=== PATIENT | female | born 1990 | race Caucasian/White ===

== ENCOUNTER 2018-10-30 09:27 | Emergency (ER) | payer OTHER ==
[2018-10-30 09:37] VITALS: BP 138/96; PULSE 93; RESP 18; TEMP 98.1
--- NOTE | 2018-10-30 10:51 | ED ---
General Adult HPI - General Chief complaint: Skin/Abscess/Foreign Body Stated complaint: scratched arm-[facility] Time Seen by Provider: 10/30/18 09:38 Source: patient, RN notes reviewed Mode of arrival: ambulatory Limitations: no limitations - History of Present Illness Initial comments: 28 year old female presents to the emergency department for a chief complaint of human scratch. Patient states that yesterday she was sitting for a psych patient in this hospital. States that patient had saliva and feces on his hands. States he was trying to get up so she tried to restrain him and he scratched her right wrist. States she did provide local wound care and wash the area. States she is up-to-date on tetanus in the past 5 years. Patient is concerned because he had saliva on his hands any scratched her. Patient wishes to have testing done. Denies any redness or drainage from the area. Denies any bite alicia.Patient has no other complaints at this time including shortness of breath, chest pain, abdominal pain, nausea or vomiting, headache, or visual changes. - Related Data Allergies Allergy/AdvReac Type Severity Reaction Status Date / Time No Known Allergies Allergy Verified 10/30/18 09:32 Review of Systems ROS Statement: Those systems with pertinent positive or pertinent negative responses have been documented in the HPI. ROS Other: All systems not noted in ROS Statement are negative. Past Medical History Past Medical History: No Reported History History of Any Multi-Drug Resistant Organisms: None Reported Past Surgical History: Tonsillectomy Additional Past Surgical History / Comment(s): tumor removal, esophagus dilation Past Psychological History: No Psychological Hx Reported Smoking Status: Never smoker Past Alcohol Use History: Occasional Past Drug Use History: None Reported General Exam Limitations: no limitations General appearance: alert, in no apparent distress Head exam: Present: atraumatic, normocephalic, normal inspection Eye exam: Present: normal appearance, PERRL, EOMI. Absent: scleral icterus, conjunctival injection, periorbital swelling ENT exam: Present: normal exam, mucous membranes moist Neck exam: Present: normal inspection, full ROM. Absent: tenderness, meningismus, lymphadenopathy Respiratory exam: Present: normal lung sounds bilaterally. Absent: respiratory distress, wheezes, rales, rhonchi, stridor Cardiovascular Exam: Present: regular rate, normal rhythm, normal heart sounds. Absent: systolic murmur, diastolic murmur, rubs, gallop, clicks Extremities exam: Present: other (2 small shallow scratches measuring about 1 cm x 1 cm noted on the right volar wrist. No erythema or drainage from the site. No evidence of infection at this time.) Neurological exam: Present: alert, oriented X3, CN II-XII intact Psychiatric exam: Present: normal affect, normal mood Course Vital Signs 10/30/18 09:32 Temperature 98.1 F Pulse Rate 93 Respiratory 18 Rate Blood Pressure 138/96 O2 Sat by Pulse 98 Oximetry Medical Decision Making - Medical Decision Making 28-year-old female presents to the emergency department for chief, a few mid scratch occurred yesterday. Patient was patient sitting for another site patient when she was scratched in the right wrist and is concerned because he had saliva and feces on his hand. Patient did provide local wound care and at this time no evidence of infection. Tetanus is up-to-date. However patient is concerned for transmittal diseases, source blood will be tested as well as patient blood. She does not like to be prophylaxis. Patient will be notified about results by Soila Garcia. No need for antibiotics at this time. However did recommend watching for signs of infection as spreading or streaking redness and returning if these occur. Patient will return if she has any other worsening symptoms. Disposition Clinical Impression: Scratch of right forearm Disposition: HOME SELF-CARE Condition: Good Instructions (If sedation given, give patient instructions): Abrasion (ED) Additional Instructions: Please keep the area clean. Apply topical antibiotic ointment. If you notice any spreading redness streaking redness drainage or fevers return immediately to the emergency department. Return if you have any other worsening symptoms. Is patient prescribed a controlled substance at d/c from ED?: No Referrals: Leanne Almodovar MD [Primary Care Provider] - 1-2 days Time of Disposition: 11:02
== END 2018-10-30 11:13 | disposition home or self-care (01) ==
LOC: EC 09:27
DX: S50.811A Abrasion of right forearm, initial encounter (principal); W50.4XXA Accidental scratch by another person, initial encounter; Y92.69 Other specified industrial and construction area as the place of occurrence of the external cause; Y99.0 Civilian activity done for income or pay
CPT/HCPCS: 99283

== ENCOUNTER 2020-06-25 09:26 | Emergency (ER) | payer OTHER ==
[2020-06-25 09:31] VITALS: RESP 18
--- NOTE | 2020-06-25 09:34 | ED ---
Abdominal Pain HPI - General Source: patient Mode of arrival: ambulatory Limitations: no limitations <Quin Melara - Last Filed: 06/25/20 09:34> - General Source: patient, RN notes reviewed, old records reviewed <Catrachito Martinez - Last Filed: 06/25/20 11:14> - General Chief Complaint: Abdominal Pain Stated Complaint: abd pain/vomiting Time Seen by Provider: 06/25/20 09:30 - History of Present Illness Initial Comments: This is a 22-year-old female who presents emergency Department complaining of 2 day history of vomiting and epigastric abdominal pain starting yesterday. Patient states she continues to be nauseous and vomit. Patient denies any diarrhea. Patient denies any radiation of the pain to the back. Patient states there is some pain in the right upper quadrant as well. Patient denies any fever chills or cough. Patient states she is not safe factors she can't be . Patient denies any dysuria hematuria urinary frequency. (Catrachito Martinez) - Related Data Home Medications Medication Instructions Recorded Confirmed Cetirizine HCl [Zyrtec] 10 mg PO DAILY 06/25/20 06/25/20 Famotidine [Pepcid] 20 mg PO DAILY PRN 06/25/20 06/25/20 Methylphenidate HCl [Concerta] 27 mg PO DAILY 06/25/20 06/25/20 Multivitamins, Thera [Multivitamin 1 tab PO DAILY 06/25/20 06/25/20 (formulary)] Norgestimate-Ethinyl Estradiol 1 tab PO DAILY 06/25/20 06/25/20 [Tri-Sprintec Tablet] Omeprazole 20 mg PO DAILY PRN 06/25/20 06/25/20 Allergies Allergy/AdvReac Type Severity Reaction Status Date / Time No Known Allergies Allergy Verified 06/25/20 10:57 Review of Systems ROS Other: All systems not noted in ROS Statement are negative. <Quin Melara - Last Filed: 06/25/20 09:34> ROS Other: All systems not noted in ROS Statement are negative. <Catrachito Martinez - Last Filed: 06/25/20 11:14> ROS Statement: Those systems with pertinent positive or pertinent negative responses have been documented in the HPI. Past Medical History Past Medical History: No Reported History History of Any Multi-Drug Resistant Organisms: None Reported Past Surgical History: Tonsillectomy Additional Past Surgical History / Comment(s): tumor removal, esophagus dilation Past Psychological History: No Psychological Hx Reported Smoking Status: Never smoker Past Alcohol Use History: Occasional Past Drug Use History: None Reported <Quin Melara Martha - Last Filed: 06/25/20 09:34> General Exam Limitations: no limitations <Quin Melara - Last Filed: 06/25/20 09:34> <Catrachito Martinez - Last Filed: 06/25/20 11:14> - General Exam Comments Initial Comments: GENERAL: Patient is well-developed and well-nourished. Patient is nontoxic and well- hydrated and is in mild distress. ENT: Neck is soft and supple. No significant lymphadenopathy is noted. Oropharynx is clear. Moist mucous membranes. Neck has full range of motion without eliciting any pain. EYES: The sclera were anicteric and conjunctiva were pink and moist. Extraocular movements were intact and pupils were equal round and reactive to light. Eyelids were unremarkable. PULMONARY: Unlabored respirations. Good breath sounds bilaterally. No audible rales rhonchi or wheezing was noted. CARDIOVASCULAR: There is a regular rate and rhythm without any murmurs gallops or rubs. ABDOMEN: Epigastric and right upper quadrant mildly tender. SKIN: Skin is clear with no lesions or rashes and otherwise unremarkable. NEUROLOGIC: Patient is alert and oriented x3. Cranial nerves II through XII are grossly int act. Motor and sensory are also intact. Normal speech, volume and content. Symmetrical smile. MUSCULOSKELETAL: Normal extremities with adequate strength and full range of motion. No lower extremity swelling or edema. No calf tenderness. LYMPHATICS: No significant lymphadenopathy is noted PSYCHIATRIC: Normal psychiatric evaluation. (Catrachito Martinez) Course Vital Signs 06/25/20 06/25/20 09:28 10:52 Temperature 98.8 F 98.6 F Pulse Rate 111 H 98 Respiratory 18 18 Rate Blood Pressure 134/95 136/87 O2 Sat by Pulse 98 99 Oximetry Medical Decision Making - Lab Data Result diagrams: 06/25/20 09:49 06/25/20 09:49 <Catrachito Martinez - Last Filed: 06/25/20 11:14> - Medical Decision Making Gallbladder ultrasound showed no acute abnormality. I will back into the room and the patient was much because she had no abdominal pain. Patient states she is mildly nauseous but no longer having any vomiting. (Catrachito Martinez) - Lab Data Lab Results 06/25/20 06/25/20 06/25/20 Range/Units 09:49 09:49 09:49 WBC 13.7 H (3.8-10.6) k/uL RBC 4.64 (3.80-5.40) m/uL Hgb 14.1 (11.4-16.0) gm/dL Hct 42.3 (34.0-46.0) % MCV 91.1 (80.0-100.0) fL MCH 30.4 (25.0-35.0) pg MCHC 33.4 (31.0-37.0) g/dL RDW 12.7 (11.5-15.5) % Plt Count 317 (150-450) k/uL MPV 7.1 Neutrophils % 78 % Lymphocytes % 12 % Monocytes % 6 % Eosinophils % 0 % Basophils % 0 % Neutrophils # 10.7 H (1.3-7.7) k/uL Lymphocytes # 1.7 (1.0-4.8) k/uL Monocytes # 0.8 (0-1.0) k/uL Eosinophils # 0.0 (0-0.7) k/uL Basophils # 0.0 (0-0.2) k/uL Sodium 137 (137-145) mmol/L Potassium 4.0 (3.5-5.1) mmol/L Chloride 101 (98-107) mmol/L Carbon Dioxide 24 (22-30) mmol/L Anion Gap 12 mmol/L BUN 9 (7-17) mg/dL Creatinine 0.77 (0.52-1.04) mg/dL Est GFR (CKD-EPI)AfAm >90 (>60 ml/min/1.73 sqM) Est GFR (CKD-EPI)NonAf >90 (>60 ml/min/1.73 sqM) Glucose 114 H (74-99) mg/dL Calcium 9.9 (8.4-10.2) mg/dL Total Bilirubin 1.1 (0.2-1.3) mg/dL AST 27 (14-36) U/L ALT 19 (4-34) U/L Alkaline Phosphatase 98 (38-126) U/L Total Protein 8.7 H (6.3-8.2) g/dL Albumin 4.9 (3.5-5.0) g/dL Amylase 69 (30-110) U/L Lipase 101 (23-300) U/L Urine Color Light Yellow Urine Appearance Clear (Clear) Urine pH 6.0 (5.0-8.0) Ur Specific [place] 1.008 (1.001-1.035) Urine Protein Negative (Negative) Urine Glucose (UA) Negative (Negative) Urine Ketones Negative (Negative) Urine Blood Trace H (Negative) Urine Nitrite Negative (Negative) Urine Bilirubin Negative (Negative) Urine Urobilinogen <2.0 (<2.0) mg/dL Ur Leukocyte Esterase Negative (Negative) Urine RBC 1 (0-5) /hpf Urine WBC 2 (0-5) /hpf Ur Squamous Epith Cells 1 (0-4) /hpf Urine Bacteria Occasional H (None) /hpf Urine Mucus Rare H (None) /hpf Urine HCG, Qual (Not Detectd) 06/25/20 Range/Units 09:49 WBC (3.8-10.6) k/uL RBC (3.80-5.40) m/uL Hgb (11.4-16.0) gm/dL Hct (34.0-46.0) % MCV (80.0-100.0) fL MCH (25.0-35.0) pg MCHC (31.0-37.0) g/dL RDW (11.5-15.5) % Plt Count (150-450) k/uL MPV Neutrophils % % Lymphocytes % % Monocytes % % Eosinophils % % Basophils % % Neutrophils # (1.3-7.7) k/uL Lymphocytes # (1.0-4.8) k/uL Monocytes # (0-1.0) k/uL Eosinophils # (0-0.7) k/uL Basophils # (0-0.2) k/uL Sodium (137-145) mmol/L Potassium (3.5-5.1) mmol/L Chloride (98-107) mmol/L Carbon Dioxide (22-30) mmol/L Anion Gap mmol/L BUN (7-17) mg/dL Creatinine (0.52-1.04) mg/dL Est GFR (CKD-EPI)AfAm (>60 ml/min/1.73 sqM) Est GFR (CKD-EPI)NonAf (>60 ml/min/1.73 sqM) Glucose (74-99) mg/dL Calcium (8.4-10.2) mg/dL Total Bilirubin (0.2-1.3) mg/dL AST (14-36) U/L ALT (4-34) U/L Alkaline Phosphatase (38-126) U/L Total Protein (6.3-8.2) g/dL Albumin (3.5-5.0) g/dL Amylase (30-110) U/L Lipase (23-300) U/L Urine Color Urine Appearance (Clear) Urine pH (5.0-8.0) Ur Specific [place] (1.001-1.035) Urine Protein (Negative) Urine Glucose (UA) (Negative) Urine Ketones (Negative) Urine Blood (Negative) Urine Nitrite (Negative) Urine Bilirubin (Negative) Urine Urobilinogen (<2.0) mg/dL Ur Leukocyte Esterase (Negative) Urine RBC (0-5) /hpf Urine WBC (0-5) /hpf Ur Squamous Epith Cells (0-4) /hpf Urine Bacteria (None) /hpf Urine Mucus (None) /hpf Urine HCG, Qual Not Detected (Not Detectd) Disposition <Quin Melara - Last Filed: 06/25/20 09:34> Is patient prescribed a controlled substance at d/c from ED?: No Time of Disposition: 11:14 <Catrachito Martinez - Last Filed: 06/25/20 11:14> Clinical Impression: Acute vomiting Disposition: HOME SELF-CARE Condition: Good Instructions (If sedation given, give patient instructions): Acute Nausea and Vomiting (ED) Additional Instructions: Patient should take Zofran as prescribed Referrals: Leanne Almodovar MD [Primary Care Provider] - 1-2 days
[2020-06-25] MEDS ORDERED: HYDROmorphone 0.5 MG/0.5 ML SYRINGE IVP STA (09:43)
[2020-06-25] MEDS ORDERED: ONDANSETRON 4 MG/2 ML VIAL IVP STA (09:43)
[2020-06-25] MEDS ORDERED: SODIUM CHLORIDE 0.9% 1,000 ML IV STA (09:43)
[2020-06-25 09:57] LABS: Basophils % (A) 0 %; Eosinophils % (A) 0 %; HCT 42.3 % (34.0-46.0); HGB 14.1 gm/dL (11.4-16.0); Lymphocytes # (A) 1.7 k/uL (1.0-4.8); Lymphocytes % (A) 12 %; MCH 30.4 pg (25.0-35.0); MCHC 33.4 g/dL (31.0-37.0); MCV 91.1 fL (80.0-100.0); Mean Platelet Volume 7.1; Monocytes # (A) 0.8 k/uL (0-1.0); Monocytes % (A) 6 %; Neutrophils # (A) 10.7 k/uL (1.3-7.7); Neutrophils % (A) 78 %; Platelet Count 317 k/uL (150-450); RBC 4.64 m/uL (3.80-5.40); RDW 12.7 % (11.5-15.5); WBC 13.7 k/uL (3.8-10.6)
[2020-06-25 10:07] LABS: ALT 19 U/L (4-34); AST 27 U/L (14-36); African American GFR (CKD) >90 (>60 ml/min/1.73 sqM); Albumin 4.9 g/dL (3.5-5.0); Alkaline Phosphatase 98 U/L (38-126); Amylase 69 U/L (30-110); Anion Gap 12 mmol/L; Blood Urea Nitrogen 9 mg/dL (7-17); Calcium 9.9 mg/dL (8.4-10.2); Carbon Dioxide 24 mmol/L (22-30); Chloride 101 mmol/L (98-107); Glucose 114 mg/dL (74-99); Lipase 101 U/L (23-300); Non-African American GFR(CKD) >90 (>60 ml/min/1.73 sqM); Sodium 137 mmol/L (137-145); Total Bilirubin 1.1 mg/dL (0.2-1.3); Total Protein 8.7 g/dL (6.3-8.2)
[2020-06-25 10:09] LABS: Appearance,Urine Clear (Clear); Bacteria,Urine Occasional /hpf; Bilirubin,Urine Negative (Negative); Blood,Urine Trace (Negative); Color,Urine Light Yellow; Glucose,Urine (UA) Negative (Negative); Ketones,Urine Negative (Negative); Leukocyte Esterase,Urine Negative (Negative); Mucus,Urine Rare /hpf; Nitrite,Urine Negative (Negative); Protein,Urine Negative (Negative); RBC,Urine 1 /hpf (0-5); Specific Gravity,Urine 1.008 (1.001-1.035); Squamous Epithelial Cell,Urine 1 /hpf (0-4); Urobilinogen,Urine <2.0 mg/dL (<2.0); WBC,Urine 2 /hpf (0-5)
--- NOTE | 2020-06-25 10:34 | US ---
EXAMINATION TYPE: US gallbladder DATE OF EXAM: 06/25/2020 COMPARISON: NONE CLINICAL HISTORY: Abdominal pain. Pain nausea and vomiting. EXAM MEASUREMENTS: Liver Length: 13.7 cm Gallbladder Wall: .2 cm CBD: .5 cm Right Kidney: 11.4 x 4.1 x 3.8 cm Pancreas: Tail obscured by overlying bowel gas Liver: wnl Gallbladder: No stones seen Evidence for sonographic Foster's sign: No CBD: wnl Right Kidney: No hydronephrosis or masses seen IMPRESSION: No distinct abnormality seen.
[2020-06-25 10:54] VITALS: BP 136/87; PULSE 98; TEMP 98.6
[2020-06-25] MEDS ORDERED: ONDANSETRON 4 MG ODT STARTER PACK 2 TAB BTL PO STA (11:14)
== END 2020-06-25 12:03 | disposition home or self-care (01) ==
LOC: EC 09:26
DX: R11.2 Nausea with vomiting, unspecified (principal); Z79.899 Other long term (current) drug therapy; Z79.3 Long term (current) use of hormonal contraceptives
CPT/HCPCS: 36415; 80053; 82150; 83690; 85025; 81001; 81025; 76705; 99284; 96374; 96375; 96361 ×2; J2405; S0119; J1170

== ENCOUNTER 2020-06-26 11:45 | Inpatient (IN) | payer OTHER ==
[2020-06-26] MEDS ORDERED: KETOROLAC 15 MG/ML 1 ML VIAL IVP STA (11:51)
[2020-06-26] MEDS ORDERED: SODIUM CHLORIDE 0.9% 1,000 ML IV STA (11:51)
[2020-06-26] MEDS ORDERED: diphenhydrAMINE 50 MG/ML 1 ML VIAL IVP STA (11:51)
[2020-06-26] MEDS ORDERED: ONDANSETRON 4 MG/2 ML VIAL IVP STA ×2 (11:51→15:38)
[2020-06-26] MEDS ORDERED: FAMOTIDINE 20 MG/2 ML VIAL IV STA (12:06)
[2020-06-26] MEDS ORDERED: HYDROmorphone 0.5 MG/0.5 ML SYRINGE IVP STA ×3 (12:06→15:38)
[2020-06-26] MEDS ORDERED: PANTOPRAZOLE 40 MG/10 ML VIAL IVP STA (12:06)
--- NOTE | 2020-06-26 12:24 | ED ---
Abdominal Pain HPI <Matt Driver - Last Filed: 06/26/20 15:26> - General Source: patient, RN notes reviewed Mode of arrival: wheelchair Limitations: no limitations <Hipolito Vee - Last Filed: 06/26/20 15:31> - General Chief Complaint: Abdominal Pain Stated Complaint: revisit/nausea/vomiting Time Seen by Provider: 06/26/20 11:51 - History of Present Illness Initial Comments: This is a 22-year-old female presents emergency Department with chief complaint of abdominal pain, nausea vomiting. Patient states she started vomiting 4 days ago seen here yesterday in emergency department and also on lab work with no acute findings. 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 Patient states that she has not had one in the last 4 years. She has no dysuria no hematuria no diarrhea states that she's felt more constipated. states she has pain areas across her upper abdomen no chest pain or shortness breath. Denies fevers or chills denies chance . (Hipolito Vee) - Related Data Home Medications Medication Instructions Recorded Confirmed Cetirizine HCl [Zyrtec] 10 mg PO DAILY 06/25/20 06/26/20 Famotidine [Pepcid] 20 mg PO DAILY PRN 06/25/20 06/26/20 Methylphenidate HCl [Concerta] 27 mg PO DAILY 06/25/20 06/26/20 Multivitamins, Thera [Multivitamin 1 tab PO DAILY 06/25/20 06/26/20 (formulary)] Norgestimate-Ethinyl Estradiol 1 tab PO DAILY 06/25/20 06/26/20 [Tri-Sprintec Tablet] Ascorbic Acid [Vitamin C] 500 mg PO DAILY 06/26/20 06/26/20 Allergies Allergy/AdvReac Type Severity Reaction Status Date / Time No Known Allergies Allergy Verified 06/26/20 12:36 Review of Systems ROS Other: All systems not noted in ROS Statement are negative. <Matt Driver - Last Filed: 06/26/20 15:26> ROS Other: All systems not noted in ROS Statement are negative. <Hipolito Vee - Last Filed: 06/26/20 15:31> ROS Statement: Those systems with pertinent positive or pertinent negative responses have been documented in the HPI. Past Medical History Past Medical History: No Reported History History of Any Multi-Drug Resistant Organisms: None Reported Past Surgical History: Tonsillectomy Additional Past Surgical History / Comment(s): tumor removal, esophagus dilation Past Psychological History: No Psychological Hx Reported Smoking Status: Never smoker Past Alcohol Use History: Occasional Past Drug Use History: None Reported <Hipolito Vee - Last Filed: 06/26/20 15:31> General Exam Limitations: no limitations General appearance: alert, in no apparent distress Head exam: Present: atraumatic, normocephalic, normal inspection Eye exam: Present: normal appearance, PERRL, EOMI. Absent: scleral icterus, conjunctival injection, periorbital swelling ENT exam: Present: normal exam, mucous membranes moist Neck exam: Present: normal inspection, full ROM. Absent: tenderness, meningismus, lymphadenopathy Respiratory exam: Present: normal lung sounds bilaterally. Absent: respiratory distress, wheezes, rales, rhonchi, stridor Cardiovascular Exam: Present: normal rhythm, tachycardia, normal heart sounds. Absent: systolic murmur, diastolic murmur, rubs, gallop, clicks GI/Abdominal exam: Present: soft, normal bowel sounds. Absent: distended, tenderness, guarding, rebound, rigid Back exam: Absent: CVA tenderness (R), CVA tenderness (L) Neurological exam: Present: alert, oriented X3 Skin exam: Present: warm, dry, intact, normal color. Absent: rash <Hipolito Vee - Last Filed: 06/26/20 15:31> Course Vital Signs 06/26/20 06/26/20 11:46 13:44 Temperature 98.4 F Pulse Rate 114 H 105 H Respiratory 18 16 Rate Blood Pressure 135/94 115/78 O2 Sat by Pulse 98 99 Oximetry Medical Decision Making - Lab Data Result diagrams: 06/26/20 12:30 06/26/20 12:30 <Matt Driver - Last Filed: 06/26/20 15:26> - Lab Data Result diagrams: 06/26/20 12:30 06/26/20 12:30 <Hipolito Vee - Last Filed: 06/26/20 15:31> - Medical Decision Making Patient reevaluated and reexamined by myself, Dr. Driver. Patient resting comfortably in bed. Mild to moderate tenderness in the epigastrium. Patient states she has been having nausea and vomiting. CT report reviewed. Patient updated. Case discussed with Dr. Dalton, covering for hospital call, who will admit. He agrees with high-dose heparin and vascular consult. Patient denies smoking. Patient does take control and this will be held pending further evaluation. (Matt Driver) - Lab Data Lab Results 06/26/20 06/26/20 06/26/20 Range/Units 12:30 12:30 12:30 WBC 14.7 H (3.8-10.6) k/uL RBC 4.40 (3.80-5.40) m/uL Hgb 13.6 (11.4-16.0) gm/dL Hct 40.1 (34.0-46.0) % MCV 91.1 (80.0-100.0) fL MCH 31.0 (25.0-35.0) pg MCHC 34.1 (31.0-37.0) g/dL RDW 12.6 (11.5-15.5) % Plt Count 301 (150-450) k/uL MPV 7.2 Neutrophils % 79 % Lymphocytes % 10 % Monocytes % 6 % Eosinophils % 0 % Basophils % 0 % Neutrophils # 11.6 H (1.3-7.7) k/uL Lymphocytes # 1.5 (1.0-4.8) k/uL Monocytes # 0.9 (0-1.0) k/uL Eosinophils # 0.0 (0-0.7) k/uL Basophils # 0.1 (0-0.2) k/uL Sodium 135 L (137-145) mmol/L Potassium 3.8 (3.5-5.1) mmol/L Chloride 101 (98-107) mmol/L Carbon Dioxide 21 L (22-30) mmol/L Anion Gap 13 mmol/L BUN 9 (7-17) mg/dL Creatinine 0.70 (0.52-1.04) mg/dL Est GFR (CKD-EPI)AfAm >90 (>60 ml/min/1.73 sqM) Est GFR (CKD-EPI)NonAf >90 (>60 ml/min/1.73 sqM) Glucose 107 H (74-99) mg/dL Plasma Lactic Acid Rogelio 1.1 (0.7-2.0) mmol/L Calcium 9.6 (8.4-10.2) mg/dL Total Bilirubin 1.4 H (0.2-1.3) mg/dL AST 24 (14-36) U/L ALT 15 (4-34) U/L Alkaline Phosphatase 86 (38-126) U/L Total Protein 7.9 (6.3-8.2) g/dL Albumin 4.5 (3.5-5.0) g/dL Amylase 64 (30-110) U/L Lipase 80 (23-300) U/L Urine Color Urine Appearance (Clear) Urine pH (5.0-8.0) Ur Specific [place] (1.001-1.035) Urine Protein (Negative) Urine Glucose (UA) (Negative) Urine Ketones (Negative) Urine Blood (Negative) Urine Nitrite (Negative) Urine Bilirubin (Negative) Urine Urobilinogen (<2.0) mg/dL Ur Leukocyte Esterase (Negative) Urine RBC (0-5) /hpf Urine WBC (0-5) /hpf Ur Squamous Epith Cells (0-4) /hpf Urine Bacteria (None) /hpf Urine Mucus (None) /hpf Urine HCG, Qual (Not Detectd) 06/26/20 06/26/20 Range/Units 13:06 13:06 WBC (3.8-10.6) k/uL RBC (3.80-5.40) m/uL Hgb (11.4-16.0) gm/dL Hct (34.0-46.0) % MCV (80.0-100.0) fL MCH (25.0-35.0) pg MCHC (31.0-37.0) g/dL RDW (11.5-15.5) % Plt Count (150-450) k/uL MPV Neutrophils % % Lymphocytes % % Monocytes % % Eosinophils % % Basophils % % Neutrophils # (1.3-7.7) k/uL Lymphocytes # (1.0-4.8) k/uL Monocytes # (0-1.0) k/uL Eosinophils # (0-0.7) k/uL Basophils # (0-0.2) k/uL Sodium (137-145) mmol/L Potassium (3.5-5.1) mmol/L Chloride (98-107) mmol/L Carbon Dioxide (22-30) mmol/L Anion Gap mmol/L BUN (7-17) mg/dL Creatinine (0.52-1.04) mg/dL Est GFR (CKD-EPI)AfAm (>60 ml/min/1.73 sqM) Est GFR (CKD-EPI)NonAf (>60 ml/min/1.73 sqM) Glucose (74-99) mg/dL Plasma Lactic Acid Rogelio (0.7-2.0) mmol/L Calcium (8.4-10.2) mg/dL Total Bilirubin (0.2-1.3) mg/dL AST (14-36) U/L ALT (4-34) U/L Alkaline Phosphatase (38-126) U/L Total Protein (6.3-8.2) g/dL Albumin (3.5-5.0) g/dL Amylase (30-110) U/L Lipase (23-300) U/L Urine Color Light Yellow Urine Appearance Clear (Clear) Urine pH 6.0 (5.0-8.0) Ur Specific [place] 1.007 (1.001-1.035) Urine Protein Negative (Negative) Urine Glucose (UA) Negative (Negative) Urine Ketones 1+ H (Negative) Urine Blood Small H (Negative) Urine Nitrite Negative (Negative) Urine Bilirubin Negative (Negative) Urine Urobilinogen <2.0 (<2.0) mg/dL Ur Leukocyte Esterase Negative (Negative) Urine RBC 1 (0-5) /hpf Urine WBC <1 (0-5) /hpf Ur Squamous Epith Cells <1 (0-4) /hpf Urine Bacteria Occasional H (None) /hpf Urine Mucus Rare H (None) /hpf Urine HCG, Qual Not Detected (Not Detectd) Disposition <Matt Driver - Last Filed: 06/26/20 15:26> <Hipolito Vee - Last Filed: 06/26/20 15:31> Clinical Impression: Portal vein thrombosis, Abdominal pain, Vomiting Disposition: ADMITTED IP TO THIS [facility] Condition: Serious Referrals: Leanne Almodovar MD [Primary Care Provider] - 1-2 days
[2020-06-26 12:49] LABS: Basophils # (A) 0.1 k/uL (0-0.2); Basophils % (A) 0 %; Eosinophils % (A) 0 %; HCT 40.1 % (34.0-46.0); HGB 13.6 gm/dL (11.4-16.0); Lymphocytes # (A) 1.5 k/uL (1.0-4.8); Lymphocytes % (A) 10 %; MCHC 34.1 g/dL (31.0-37.0); MCV 91.1 fL (80.0-100.0); Mean Platelet Volume 7.2; Monocytes # (A) 0.9 k/uL (0-1.0); Monocytes % (A) 6 %; Neutrophils # (A) 11.6 k/uL (1.3-7.7); Neutrophils % (A) 79 %; Platelet Count 301 k/uL (150-450); RDW 12.6 % (11.5-15.5); WBC 14.7 k/uL (3.8-10.6)
[2020-06-26 13:02] LABS: ALT 15 U/L (4-34); AST 24 U/L (14-36); African American GFR (CKD) >90 (>60 ml/min/1.73 sqM); Albumin 4.5 g/dL (3.5-5.0); Alkaline Phosphatase 86 U/L (38-126); Amylase 64 U/L (30-110); Anion Gap 13 mmol/L; Blood Urea Nitrogen 9 mg/dL (7-17); Calcium 9.6 mg/dL (8.4-10.2); Carbon Dioxide 21 mmol/L (22-30); Chloride 101 mmol/L (98-107); Glucose 107 mg/dL (74-99); Lipase 80 U/L (23-300); Non-African American GFR(CKD) >90 (>60 ml/min/1.73 sqM); Potassium 3.8 mmol/L (3.5-5.1); Sodium 135 mmol/L (137-145); Total Bilirubin 1.4 mg/dL (0.2-1.3); Total Protein 7.9 g/dL (6.3-8.2)
[2020-06-26 14:03] LABS: Appearance,Urine Clear (Clear); Bacteria,Urine Occasional /hpf; Bilirubin,Urine Negative (Negative); Blood,Urine Small (Negative); Color,Urine Light Yellow; Glucose,Urine (UA) Negative (Negative); Ketones,Urine 1+ (Negative); Leukocyte Esterase,Urine Negative (Negative); Mucus,Urine Rare /hpf; Nitrite,Urine Negative (Negative); Protein,Urine Negative (Negative); RBC,Urine 1 /hpf (0-5); Specific Gravity,Urine 1.007 (1.001-1.035); Squamous Epithelial Cell,Urine <1 /hpf (0-4); Urobilinogen,Urine <2.0 mg/dL (<2.0); WBC,Urine <1 /hpf (0-5)
--- NOTE | 2020-06-26 14:55 | CT ---
EXAMINATION TYPE: CT abdomen pelvis w con DATE OF EXAM: 06/26/2020 COMPARISON: Ultrasound gallbladder 06/25/2020 HISTORY: Generalized abdominal pain. CT DLP: 1137.3 mGycm Automated exposure control for dose reduction was used. TECHNIQUE: Helical acquisition of images from the lung bases through the pelvis have been completed. CONTRAST: Performed without Oral Contrast and with IV Contrast, patient injected with 100 mL of Isovue 300. FINDINGS: There is abnormal low attenuation within the central portion of the superior mesenteric vei n, involving the splenoportal confluence, portal vein, there is inflammatory change surrounding the d uodenum at the third and fourth portion, pancreatic head. LUNG BASES: No significant abnormality is appreciated. AORTA: No significant abnormality is appreciated. LIVER/GB: There is low attenuation within the central portion of the liver which may be related to th e portal vein thrombus which extends into the left and right lobes. Portal adenopathy noted axial samanta ge #24. Gallbladder shows no stones or wall thickening, layering density may represent tumefactive sl udge PANCREAS: Some peripancreatic inflammatory changes suspected with increased density within the surrou nding fat SPLEEN: No significant abnormality is seen. ADRENALS: No significant abnormality is seen. KIDNEYS: Nonobstructive punctate calculus is present at the upper pole the left kidney, axial image # 24, coronal image 64. REPRODUCTIVE ORGANS: Right ovarian cystic lesion is present measuring 3.3 cm. BOWEL: Some mild inflammatory change suspected along the right paracolic gutter. FREE AIR: No Free Air visible. ASCITES: There is some free fluid in the pelvis.. PELVIC ADENOPATHY: None visualized. RETROPERITONEAL ADENOPATHY: No Retroperitoneal Adenopathy visible. URINARY BLADDER: Thickened wall is present however the urinary bladder is not distended OSSEOUS STRUCTURES: No significant abnormality is seen. IMPRESSION: THERE IS PORTAL VEIN THROMBOSIS SUSPECTED WITH EXTENSION INTO THE SUPERIOR MESENTERIC VEIN, SPLENOPOR TRISTON CONFLUENCE AND RESULTING INFLAMMATORY CHANGES.
[2020-06-26] MEDS ORDERED: NALOXONE 0.4 MG/ML 1 ML VIAL IV PRN (15:32)
[2020-06-26] MEDS ORDERED: HEPARIN SODIUM,PORCINE 10,000 UNIT/ML 1 ML VIAL IV ONE (15:38)
[2020-06-26] MEDS ORDERED: HEPARIN SODIUM,PORCINE 5,000 UNIT/ML 1 ML VIAL IV PRN (15:38)
[2020-06-26] MEDS ORDERED: MELATONIN 3 MG TABLET PO PRN (16:14)
[2020-06-26] MEDS ORDERED: PROCHLORPERAZINE 5 MG TAB PO PRN (16:14)
[2020-06-26] MEDS: SODIUM CHLORIDE 0.9% 1,000 ML IV SCH (16:24)
[2020-06-26] MEDS ORDERED: FAMOTIDINE 20 MG TAB PO PRN (16:36)
[2020-06-26] MEDS: HEPARIN SOD,PORK IN 0.45% NACL 25,000 UNIT in 0.45% NACL 1 250ML.BAG IV SCH (16:38)
--- NOTE | 2020-06-26 16:42 | P.HPIM ---
History of Present Illness H&P Date: 06/26/20 Chief Complaint: Abdominal pain, nausea, and vomiting History of presenting illness: Patient is a 30-year-old female with a past medical history of ADHD, GERD, and esophageal narrowing resulting in surgical procedure for dilation. Patient presenting to [facility] with a chief complaint of abdominal pain accompanied by nausea and vomiting. Patient reports his pain began 4 days ago and is described as a constant, persistent stabbing sensation to her epigastric region with a burning sensation radiating throughout her right upper quadrant. Patient was seen and evaluated in our emergency department yesterday and received a full workup with CBC, CMP, and lipase all with unremarkable findi ngs. Ultrasound gallbladder was negative revealing no distinct abnormalities. Patient was then discharged home. She returned today after reports that she continues to have this persistent abdominal pain accompanied by nausea and greater than 20 episodes of vomiting in the past 24 hours. She currently rates pain 8 out of 10 accompanied by persistent nausea. Patient currently denying any other complaints including fevers, chills, headache, lightheadedness, dizziness, chest pain or palpitations, shortness of breath or dyspnea with exertion, or experiencing any swelling/numbness/tingling in extremities. Patient was again worked up in the emergency department today with CBC now revealing mild leukocytosis with WBC count of 14.7 and CMP revealing an elevated total bili of 1.4 (was 1.1 yesterday). A CT abdomen and pelvis with contrast was then performed revealing portal pain thrombosis suspected with extension into the superior mesenteric vein, splenoportal confluence and resulting inf lammatory changes. Patient diagnosed with portal venous thrombosis and admitted under our services accompanied by consult to vascular surgery for continued medical management. Review of systems: Pertinent positives and negatives as discussed in HPI, a complete review of systems was performed and all other systems are negative. Physical exam: General: non toxic, mild distress because patient appeared very tearful with reports of pain or discomfort, appears at stated age Derm: warm, dry Head: atraumatic, normocephalic, symmetric Eyes: EOMI, no lid lag, anicteric sclera Mouth: no lip lesion, mucus membranes moist Cardiovascular: S1S2 normal with regular rate and rhythm. No murmur, rub, or gallop noted. Positive posterior tibial pulses bilaterally. Cap refill less than 2 seconds. Lungs: Respirations even, regular, and unlabored on room air. Lungs clear to auscultation bilaterally. No adventitious lung sounds noted including rhonchi, rales, crackles, or wheezes. No accessory muscle use. Abdominal: Soft with bowel sounds 4 quadrants. Tenderness to epigastric region, right upper quadrant, and suprapubic region. No appreciable organomegaly. Ext: No gross muscle atrophy, no edema, no contractures. Range of motion intact. Neuro: GCS 15. CN II-XII grossly intact, no focal neuro deficits. Psych: Alert, oriented, appropriate affect Assessment and Plan of Care: Portal vein thrombosis -CT abdomen and pelvis with contrast: portal pain thrombosis suspected w/ extension into the superior mesenteric vein, splenoportal confluence & resulting inflammatory changes. -Initiation of anticoagulation with heparin. -Consult to vascular surgery, Dr. Fung. Appreciate further recommendations. -Symptomatic care with Zofran as needed for nausea, Compazine for persistent nausea uncontrolled with Zofran. -Pain management with Dilaudid 1 mg every 3 hours as needed for severe pain. -Doppler ultrasound of liver for confirmation of CT findings. GERD -Continue home medication regimen with Pepcid. ADHD -Continue home medication regimen with Concerta. CODE STATUS: Full code DVT prophylaxis: Heparin Discussed with: Patient Anticipated discharge date: Clinical course to determine Anticipated discharge place: Home A total of 45 minutes was spent on the care of this complex patient more than 50% of the time was spent in counseling and care coordination. Past Medical History Past Medical History: No Reported History History of Any Multi-Drug Resistant Organisms: None Reported Past Surgical History: Tonsillectomy Additional Past Surgical History / Comment(s): tumor removal, esophagus dilation Past Psychological History: No Psychological Hx Reported Smoking Status: Never smoker Past Alcohol Use History: Occasional Past Drug Use History: None Reported Medications and Allergies Home Medications Medication Instructions Recorded Confirmed Type Cetirizine HCl [Zyrtec] 10 mg PO DAILY 06/25/20 06/26/20 History Famotidine [Pepcid] 20 mg PO DAILY PRN 06/25/20 06/26/20 History Methylphenidate HCl [Concerta] 27 mg PO DAILY 06/25/20 06/26/20 History Multivitamins, Thera [Multivitamin 1 tab PO DAILY 06/25/20 06/26/20 History (formulary)] Norgestimate-Ethinyl Estradiol 1 tab PO DAILY 06/25/20 06/26/20 History [Tri-Sprintec Tablet] Ascorbic Acid [Vitamin C] 500 mg PO DAILY 06/26/20 06/26/20 History Allergies Allergy/AdvReac Type Severity Reaction Status Date / Time No Known Allergies Allergy Verified 06/26/20 12:36 Physical Exam Vitals: Vital Signs Temp Pulse Resp BP Pulse Ox 06/26/20 13:44 105 H 16 115/78 99 06/26/20 11:46 98.4 F 114 H 18 135/94 98 Intake and Output 06/26/20 06/26/20 06/26/20 06:59 14:59 22:59 Other: Weight 87.09 kg Results CBC & Chem 7: 06/26/20 12:30 06/26/20 12:30 Labs: Abnormal Lab Results - Last 24 Hours (Table) 06/26/20 06/26/20 06/26/20 Range/Units 12:30 12:30 13:06 WBC 14.7 H (3.8-10.6) k/uL Neutrophils # 11.6 H (1.3-7.7) k/uL Sodium 135 L (137-145) mmol/L Carbon Dioxide 21 L (22-30) mmol/L Glucose 107 H (74-99) mg/dL Total Bilirubin 1.4 H (0.2-1.3) mg/dL Urine Ketones 1+ H (Negative) Urine Blood Small H (Negative) Urine Bacteria Occasional H (None) /hpf Urine Mucus Rare H (None) /hpf
[2020-06-26] MEDS: HYDROmorphone 0.5 MG/0.5 ML SYRINGE IVP PRN (17:36)
[2020-06-26] MEDS: HYDROmorphone 1 MG/ML 1 ML SYRINGE IVP PRN ×2 (19:52→22:36)
[2020-06-26] MEDS: PROCHLORPERAZINE INJ 10 MG/2 ML VIAL IVP PRN (22:29)
[2020-06-27] MEDS: HYDROmorphone 1 MG/ML 1 ML SYRINGE IVP PRN ×7 (01:37→21:09)
[2020-06-27 03:00] LABS: Partial Thromboplastin Time 23.4 sec (22.0-30.0); Prothrombin Time 10.6 sec (9.0-12.0)
[2020-06-27] MEDS: SODIUM CHLORIDE 0.9% 1,000 ML IV SCH ×3 (03:41→23:15)
[2020-06-27] MEDS: PROCHLORPERAZINE INJ 10 MG/2 ML VIAL IVP PRN ×2 (08:02→18:19)
[2020-06-27] MEDS: PANTOPRAZOLE 40 MG/10 ML VIAL IVP SCH ×2 (08:10→22:10)
[2020-06-27] MEDS: METHYLPHENIDATE HCL 27 MG PO SCH (08:14)
--- NOTE | 2020-06-27 08:54 | US ---
EXAMINATION TYPE: US liver doppler DATE OF EXAM: 06/26/2020 COMPARISON: NONE CLINICAL HISTO RY: CT revealing suspected portal venous thrombosis. Abnormal CT EXAM MEASUREMENTS: Liver Length: 13.7 cm Gallbladder Wall: 0.3 cm CBD: 0.4 cm Right Kidney: 11.5 x 4.7 x 5.2 cm Pancreas: Obscured by bowel gas Liver: Liver appeared wnl, Main portal vein shows probable thrombus-limited visualization of portal vein due to overlying bowel gas and pt body habitus- no blood flow by color/doppler, Hepatic artery visualized and patent Gallbladder: wnl Evidence for sonographic Foster's sign: No CBD: wnl Right Kidney: wnl, lower pole gassed out Ascites noted? No IMPRESSION: 1. Limited exam demonstrates Limited visualization portal vein due to overlying bowel gas. No definit e blood flow detected within the visualized portal vein by ultrasound. Findings suspicious for portal vein thrombosis. Given limitation exam consider MRI.
[2020-06-27 09:16] LABS: Basophils # (A) 0.04 X 10*3/uL (0.00-0.10); Basophils % (A) 0.3 %; Eosinophils # (A) 0.02 X 10*3/uL (0.04-0.35); Eosinophils % (A) 0.2 %; HCT 32.7 % (37.2-46.3); HGB 10.7 g/dL (12.0-15.0); Lymphocytes # (A) 1.32 X 10*3/uL (0.90-5.00); Lymphocytes % (A) 11.2 %; MCH 30.3 pg (27.0-32.0); MCHC 32.7 g/dL (32.0-37.0); MCV 92.6 fL (80.0-97.0); Monocytes # (A) 1.15 X 10*3/uL (0.20-1.00); Monocytes % (A) 9.8 %; Neutrophils % (A) 78.2 %; Platelet Count 254 X 10*3/uL (140-440); RBC 3.53 X 10*6/uL (4.10-5.20); WBC 11.77 X 10*3/uL (4.50-10.00)
--- NOTE | 2020-06-27 09:38 | P.GSCN ---
History of Present Illness Consult date: 06/27/20 Reason for Consult: Portal vein thrombosis History of present illness: This is a 30-year-old pleasant female who came into the emergency room yesterday with complaints of severe epigastric pain that radiated down to her lower abdomen and across her abdomen. His been associated with nausea and vomiting. The patient states the symptoms began this past Friday with vomiting at least twice an hour with what she reports as stabbing pain in her epigastric area. She went to the emergency room on Friday has the pain worsened, however she was sent home. She states she had similar symptoms but not as severe about a month ago and went to urgent care. Today she reports no vomiting, she still has some nausea remaining and pain has improved with pain meds which she is taking every 3 hours. She denies any shortness of breath or chest pain, but states she still has the epigastric pain. Reports no bowel movement since Friday, however she states she has not been eating much the last few days. She denies any weight loss. The patient reports no previous history of liver disease, no previous history of any clotting disorders, however states her paternal grandmother does have a history of clotting disorder with a history of blood clots. She also reports her mother having a history of lupus. The patient also has a history of GERD, and previous balloon dilation of the esophagus for strictures. She states her last dilation was approximately 4 years ago. She uses omeprazole as needed for her GERD. Upon evaluation in the emergency room a CT of the abdomen was ordered which showed a low attenuation within central portion of the liver which extends into the superior mesenteric vein. Splenoportal confluence with resulting inflammatory changes. Liver ultrasound ordered Review of Systems 14 point review of systems was completed all pertinent positives and negatives as stated in the HPI Past Medical History Past Medical History: No Reported History Additional Past Medical History / Comment(s): GERD, acid reflux, ADHD History of Any Multi-Drug Resistant Organisms: None Reported Past Surgical History: Tonsillectomy Additional Past Surgical History / Comment(s): right side abdomen tumor removal, esophagus dilation Past Anesthesia/Blood Transfusion Reactions: No Reported Reaction Additional Past Anesthesia/Blood Transfusion Reaction / Comm: pt states she wakes up "paniced" Past Psychological History: ADD/ADHD Smoking Status: Never smoker Past Alcohol Use History: Occasional Past Drug Use History: None Reported - Past Family History Father Family Medical History: CVA/TIA, Diabetes Mellitus, Thyroid Disorder Mother Family Medical History: Hypertension, Thyroid Disorder Medications and Allergies Home Medications Medication Instructions Recorded Confirmed Type Cetirizine HCl [Zyrtec] 10 mg PO DAILY 06/25/20 06/26/20 History Famotidine [Pepcid] 20 mg PO DAILY PRN 06/25/20 06/26/20 History Methylphenidate HCl [Concerta] 27 mg PO DAILY 06/25/20 06/26/20 History Multivitamins, Thera [Multivitamin 1 tab PO DAILY 06/25/20 06/26/20 History (formulary)] Norgestimate-Ethinyl Estradiol 1 tab PO DAILY 06/25/20 06/26/20 History [Tri-Sprintec Tablet] Ascorbic Acid [Vitamin C] 500 mg PO DAILY 06/26/20 06/26/20 History Allergies Allergy/AdvReac Type Severity Reaction Status Date / Time No Known Allergies Allergy Verified 06/26/20 12:36 Surgical - Exam Vital Signs Temp Pulse Resp BP Pulse Ox 98.4 F 114 H 18 135/94 98 06/26/20 11:46 06/26/20 11:46 06/26/20 11:46 06/26/20 11:46 06/26/20 11:46 General appearance: The patient is alert, oriented, appears in no acute distress. HET: Head is normocephalic and atraumatic. Neck: Supple without lymphadenopathy. Trachea midline. Heart: S1 S2. Regular rate and rhythm. Lungs: No crackles or wheezes are heard. Abdomen: Soft, epigastric tenderness, nondistended with bowel sounds. No pe ritoneal signs. No palpable organomegaly or masses. Extremities: Normal skin color and turgor. No cyanosis, rash, ulceration, clubbing, or edema. Palpable bilateral radial, femoral and dorsalis pedis pulses. Neurological: No focal deficits. Strength and sensation are grossly intact. Results CT of the abdomen was ordered which showed a low attenuation within central portion of the liver which extends into the superior mesenteric vein. Splenoportal confluence with resulting inflammatory changes. Liver ultrasound pending - Labs 06/27/20 02:40 06/27/20 02:40 Abnormal Lab Results - Last 24 Hours (Table) 06/26/20 06/26/20 06/26/20 Range/Units 12:30 12:30 13:06 WBC 14.7 H (3.8-10.6) k/uL RBC (4.10-5.20) X 10*6/uL Hgb (12.0-15.0) g/dL Hct (37.2-46.3) % Neutrophils # 11.6 H (1.3-7.7) k/uL Monocytes # (0.20-1.00) X 10*3/uL Eosinophils # (0.04-0.35) X 10*3/uL APTT (22.0-30.0) sec Sodium 135 L (137-145) mmol/L Carbon Dioxide 21 L (22-30) mmol/L Glucose 107 H (74-99) mg/dL Total Bilirubin 1.4 H (0.2-1.3) mg/dL Urine Ketones 1+ H (Negative) Urine Blood Small H (Negative) Urine Bacteria Occasional H (None) /hpf Urine Mucus Rare H (None) /hpf 06/26/20 06/27/20 Range/Units 19:47 02:40 WBC 11.77 H (3.8-10.6) k/uL RBC 3.53 L (4.10-5.20) X 10*6/uL Hgb 10.7 L (12.0-15.0) g/dL Hct 32.7 L (37.2-46.3) % Neutrophils # 9.20 H (1.3-7.7) k/uL Monocytes # 1.15 H (0.20-1.00) X 10*3/uL Eosinophils # 0.02 L (0.04-0.35) X 10*3/uL APTT 118.5 H* (22.0-30.0) sec Sodium (137-145) mmol/L Carbon Dioxide (22-30) mmol/L Glucose (74-99) mg/dL Total Bilirubin (0.2-1.3) mg/dL Urine Ketones (Negative) Urine Blood (Negative) Urine Bacteria (None) /hpf Urine Mucus (None) /hpf Diabetes panel 06/26/20 Range/Units 12:30 Sodium 135 L (137-145) mmol/L Potassium 3.8 (3.5-5.1) mmol/L Chloride 101 (98-107) mmol/L Carbon Dioxide 21 L (22-30) mmol/L BUN 9 (7-17) mg/dL Creatinine 0.70 (0.52-1.04) mg/dL Glucose 107 H (74-99) mg/dL Calcium 9.6 (8.4-10.2) mg/dL AST 24 (14-36) U/L ALT 15 (4-34) U/L Alkaline Phosphatase 86 (38-126) U/L Total Protein 7.9 (6.3-8.2) g/dL Albumin 4.5 (3.5-5.0) g/dL Calcium panel 06/26/20 Range/Units 12:30 Calcium 9.6 (8.4-10.2) mg/dL Albumin 4.5 (3.5-5.0) g/dL Pituitary panel 06/26/20 Range/Units 12:30 Sodium 135 L (137-145) mmol/L Potassium 3.8 (3.5-5.1) mmol/L Chloride 101 (98-107) mmol/L Carbon Dioxide 21 L (22-30) mmol/L BUN 9 (7-17) mg/dL Creatinine 0.70 (0.52-1.04) mg/dL Glucose 107 H (74-99) mg/dL Calcium 9.6 (8.4-10.2) mg/dL Adrenal panel 06/26/20 Range/Units 12:30 Sodium 135 L (137-145) mmol/L Potassium 3.8 (3.5-5.1) mmol/L Chloride 101 (98-107) mmol/L Carbon Dioxide 21 L (22-30) mmol/L BUN 9 (7-17) mg/dL Creatinine 0.70 (0.52-1.04) mg/dL Glucose 107 H (74-99) mg/dL Calcium 9.6 (8.4-10.2) mg/dL Total Bilirubin 1.4 H (0.2-1.3) mg/dL AST 24 (14-36) U/L ALT 15 (4-34) U/L Alkaline Phosphatase 86 (38-126) U/L Total Protein 7.9 (6.3-8.2) g/dL Albumin 4.5 (3.5-5.0) g/dL Assessment and Plan Assessment: 1. Portal vein thrombosis 2. Epigastric pain 3. Nausea and vomiting 4. History of GERD 5. History of esophageal stricture status post balloon dilation 4, last dilation 4 years ago Plan: 1. Supportive care 2. Continue with heparin drip 3. CT of abdomen reviewed 4. Liver ultrasound pending 5. Further recommendations to follow The impression and plan of care has been dictated as directed. I performed a history and examination of this patient, discussed the same with the dictator. I agree with the dictator's note ,documented as a scribe. Any additional findings or plans will be noted.
[2020-06-27 09:51] LABS: African American GFR (CKD) 136.7 (60.0-200.0); Albumin 3.9 g/dL (3.80-4.90); Albumin/Globulin Ratio 2.05 (1.60-3.17); Anion Gap 10.6 mmol/L (4.00-12.00); BUN/Creat Ratio 8.57 Ratio (12.00-20.00); Carbon Dioxide 22.4 mmol/L (21.6-31.8); Globulin 1.9 g/dL (1.6-3.3); Non-African American GFR(CKD) 117.9 (60.0-200.0); Potassium 3.4 mmol/L (3.5-5.5); Total Bilirubin 0.8 mg/dL (0.2-1.2); Total Protein 5.8 g/dL (6.2-8.2)
[2020-06-27] MEDS: ONDANSETRON 4 MG/2 ML VIAL IVP PRN ×2 (13:27→21:10)
[2020-06-27] MEDS: HEPARIN SOD,PORK IN 0.45% NACL 25,000 UNIT in 0.45% NACL 1 250ML.BAG IV SCH (13:31)
--- NOTE | 2020-06-27 14:14 | P.PN ---
Subjective Progress Note Date: 06/27/20 Principal diagnosis: Portal vein thrombosis History of presenting illness: Patient is a 30-year-old female with a past medical history of ADHD, GERD, and esophageal narrowing resulting in surgical procedure for dilation. Patient presenting to [facility] with a chief complaint of abdominal pain accompanied by nausea and vomiting. Patient reports his pain began 4 days ago and is described as a constant, persistent stabbing sensation to her epigastric region with a burning sensation radiating throughout her right upper quadrant. Patient was seen and evaluated in our emergency department yesterday and received a full workup with CBC, CMP, and lipase all with unremarkable findings. Ultrasound gallbladder was negative revealing no distinct abnormalities. Patient was then discharged home. She returned today after reports that she continues to have this persistent abdominal pain accompanied by nausea and greater than 20 episodes of vomiting in the past 24 hours. She currently rates pain 8 out of 10 accompanied by persistent nausea. Patient currently denying any other complaints including fevers, chills, headache, lightheadedness, dizziness, chest pain or palpitations, shortness of breath or dyspnea with exertion, or experiencing any swelling/numbness/tingling in extremities. Patient was again worked up in the emergency department today with CBC now revealing mild leukocytosis with WBC count of 14.7 and CMP revealing an elevated total bili of 1.4 (was 1.1 yesterday). A CT abdomen and pelvis with contrast was then performed revealing portal pain thrombosis suspected with extension into the superior mesenteric vein, splenoportal confluence and resulting inflammatory changes. Patient diagnosed with portal venous thrombosis and admitted under our services accompanied by consult to vascular surgery for continued medical management. Physical exam: Patient seen and evaluated at the bedside this morning. Patient appears much more comfortable at this time. Patient reports pain remains to epigastric and right upper quadrant but only with palpation now. Patient reports nausea has subsided and she was able to eat breakfast this morning. She denies having any other complaints at this time including headache, lightheadedness, dizziness, changes in her vision or hearing, experiencing any chest pain or palpitations, or shortness of breath. Labs revealed leukocytosis with WBC count of 11.77 and anemia with hemoglobin of 10.7 (previously 13.6 yesterday). Patient denies any noted bleeding/bruising, blood in stool, or hematuria. General: non toxic, mild distress because patient appeared very tearful with reports of pain or discomfort, appears at stated age Derm: warm, dry Head: atraumatic, normocephalic, symmetric Eyes: EOMI, no lid lag, anicteric sclera Mouth: no lip lesion, mucus membranes moist Cardiovascular: S1S2 normal with regular rate and rhythm. No murmur, rub, or gallop noted. Positive posterior tibial pulses bilaterally. Cap refill less than 2 seconds. Lungs: Respirations even, regular, and unlabored on room air. Lungs clear to auscultation bilaterally. No adventitious lung sounds noted including rhonchi, rales, crackles, or wheezes. No accessory muscle use. Abdominal: Soft with bowel sounds 4 quadrants. Tenderness to epigastric region, right upper quadrant, and suprapubic region. No appreciable organomegaly. Ext: No gross muscle atrophy, no edema, no contractures. Range of motion intact. Neuro: GCS 15. CN II-XII grossly intact, no focal neuro deficits. Psych: Alert, oriented, appropriate affect Assessment and Plan of Care: Portal vein thrombosis -CT abdomen and pelvis with contrast: portal pain thrombosis suspected w/ extension into the superior mesenteric vein, splenoportal confluence & resulting inflammatory changes. -Continuation of anticoagulation with heparin. -Ultrasound of liver was reported to be a limited visualization of the portal seen due to overlying bowel gas. No definite blood flow detected within the visualized portal vein by ultrasound. Findings suspicious for portal vein thrombosis. May consider MRI. -Vascular surgery following, Dr. Fung. Appreciate further recommendations. -Symptomatic care with Zofran as needed for nausea, Compazine for persistent sandra sea uncontrolled with Zofran. -Pain management with Dilaudid 1 mg every 3 hours as needed for severe pain. Normocytic normochromic anemia -Hemoglobin of 10.7, hematocrit 32.7, MCV 92.6, MCH 30.3, MCHC of 32.7, and RDW of 13.0. -We will continue to monitor closely as patient is on heparin infusion and this is new finding, no evidence of bleeding at this time. -Repeat CBC with a.m. labs GERD -Continue home medication regimen with Pepcid. ADHD -Continue home medication regimen with Concerta. CODE STATUS: Full code DVT prophylaxis: Heparin Discussed with: Patient and RN Anticipated discharge date: Clinical course to determine Anticipated discharge place: Home A total of 45 minutes was spent on the care of this complex patient more than 50% of the time was spent in counseling and care coordination. Objective - Vital Signs Vital signs: Vital Signs Temp 98.2 F 06/27/20 04:39 Pulse 89 06/27/20 04:39 Resp 18 06/27/20 04:39 BP 104/67 06/27/20 04:39 Pulse Ox 95 06/27/20 04:39 Intake & Output 06/26/20 06/27/20 06/27/20 18:59 06:59 18:59 Intake Total 1166.623 Balance 1166.623 Weight 87.09 kg 87.09 kg Intake: Intake, IV Titration 1166.623 Amount Heparin Sod,Pork in 0.45% 66.623 NaCl 25,000 unit In 0.45 % NaCl 1 250ml.bag @ 18 UNITS/KG/HR 15.676 mls/hr IV .[id number] [facility] Rx#: [id number] Sodium Chloride 0.9% 1, 1100 000 ml @ 100 mls/hr IV . Q10H [facility] Rx#:[id number] Other: Voiding Method Toilet # Voids 1 - Labs CBC & Chem 7: 06/27/20 02:40 06/27/20 02:40 Labs: Abnormal Lab Results - Last 24 Hours (Table) 06/26/20 06/26/20 06/26/20 Range/Units 12:30 12:30 13:06 WBC 14.7 H (3.8-10.6) k/uL RBC (4.10-5.20) X 10*6/uL Hgb (12.0-15.0) g/dL Hct (37.2-46.3) % Neutrophils # 11.6 H (1.3-7.7) k/uL Monocytes # (0.20-1.00) X 10*3/uL Eosinophils # (0.04-0.35) X 10*3/uL APTT (22.0-30.0) sec Sodium 135 L (137-145) mmol/L Potassium (3.5-5.5) mmol/L Carbon Dioxide 21 L (22-30) mmol/L BUN (9.0-27.0) mg/dL BUN/Creatinine Ratio (12.00-20.00) Ratio Glucose 107 H (74-99) mg/dL Calcium (8.7-10.3) mg/dL Total Bilirubin 1.4 H (0.2-1.3) mg/dL Total Protein (6.2-8.2) g/dL Urine Ketones 1+ H (Negative) Urine Blood Small H (Negative) Urine Bacteria Occasional H (None) /hpf Urine Mucus Rare H (None) /hpf 06/26/20 06/27/20 06/27/20 Range/Units 19:47 02:40 02:40 WBC 11.77 H (3.8-10.6) k/uL RBC 3.53 L (4.10-5.20) X 10*6/uL Hgb 10.7 L (12.0-15.0) g/dL Hct 32.7 L (37.2-46.3) % Neutrophils # 9.20 H (1.3-7.7) k/uL Monocytes # 1.15 H (0.20-1.00) X 10*3/uL Eosinophils # 0.02 L (0.04-0.35) X 10*3/uL APTT 118.5 H* (22.0-30.0) sec Sodium (137-145) mmol/L Potassium 3.4 L (3.5-5.5) mmol/L Carbon Dioxide (22-30) mmol/L BUN 6.0 L (9.0-27.0) mg/dL BUN/Creatinine Ratio 8.57 L (12.00-20.00) Ratio Glucose 113 H (74-99) mg/dL Calcium 8.0 L (8.7-10.3) mg/dL Total Bilirubin (0.2-1.3) mg/dL Total Protein 5.8 L (6.2-8.2) g/dL Urine Ketones (Negative) Urine Blood (Negative) Urine Bacteria (None) /hpf Urine Mucus (None) /hpf
[2020-06-27] MEDS ORDERED: polyethylene glycoL 3350 17 GM POWD.PACK PO STA (17:20)
[2020-06-27] MEDS ORDERED: POTASSIUM CHLORIDE ER 20 MEQ TAB.ER PO STA (17:21)
[2020-06-28] MEDS: HYDROmorphone 1 MG/ML 1 ML SYRINGE IVP PRN ×4 (00:33→22:43)
[2020-06-28] MEDS: HEPARIN SOD,PORK IN 0.45% NACL 25,000 UNIT in 0.45% NACL 1 250ML.BAG IV SCH ×3 (00:43→16:59)
[2020-06-28] MEDS: HYDROmorphone 0.5 MG/0.5 ML SYRINGE IVP PRN ×4 (03:42→15:32)
[2020-06-28 05:35] LABS: INR 0.9 (<1.2); Partial Thromboplastin Time 48.2 sec (22.0-30.0); Prothrombin Time 10.2 sec (9.0-12.0)
[2020-06-28] MEDS: METHYLPHENIDATE HCL 27 MG PO SCH (08:08)
[2020-06-28] MEDS: PANTOPRAZOLE 40 MG/10 ML VIAL IVP SCH (08:10)
[2020-06-28] MEDS: ONDANSETRON 4 MG/2 ML VIAL IVP PRN ×2 (08:21→18:15)
[2020-06-28] MEDS: SODIUM CHLORIDE 0.9% 1,000 ML IV SCH ×2 (09:08→16:39)
[2020-06-28 09:16] LABS: Basophils # (A) 0.03 X 10*3/uL (0.00-0.10); Basophils % (A) 0.4 %; Eosinophils # (A) 0.07 X 10*3/uL (0.04-0.35); Eosinophils % (A) 0.9 %; HGB 10.4 g/dL (12.0-15.0); Lymphocytes # (A) 2.05 X 10*3/uL (0.90-5.00); Lymphocytes % (A) 27.6 %; MCH 29.8 pg (27.0-32.0); MCHC 31.5 g/dL (32.0-37.0); MCV 94.6 fL (80.0-97.0); Mean Platelet Volume 9.6 fL (9.5-12.2); Monocytes # (A) 0.77 X 10*3/uL (0.20-1.00); Monocytes % (A) 10.4 %; Neutrophils # (A) 4.48 X 10*3/uL (1.80-7.70); Neutrophils % (A) 60.4 %; Platelet Count 244 X 10*3/uL (140-440); RBC 3.49 X 10*6/uL (4.10-5.20); RDW 12.8 % (11.5-14.5); WBC 7.42 X 10*3/uL (4.50-10.00)
[2020-06-28 09:43] LABS: ALT <8 U/L (8-44); AST 15 U/L (13-35); African American GFR (CKD) 143.8 (60.0-200.0); Albumin/Globulin Ratio 1.85 (1.60-3.17); Alkaline Phosphatase 74 U/L (41-126); Blood Urea Nitrogen <5.0 mg/dL (9.0-27.0); Calcium 8.2 mg/dL (8.7-10.3); Carbon Dioxide 25.2 mmol/L (21.6-31.8); Chloride 104 mmol/L (96-109); Glucose 81 mg/dL (70-110); Potassium 3.4 mmol/L (3.5-5.5); Sodium 138 mmol/L (135-145); Total Bilirubin 0.6 mg/dL (0.2-1.2); Total Protein 5.7 g/dL (6.2-8.2)
--- NOTE | 2020-06-28 10:18 | P.PN ---
Subjective Progress Note Date: 06/28/20 Principal diagnosis: Portal vein thrombosis She was seen and examined lying in bed. She just recently showered. She states her abdominal pain has improved significantly from yesterday. She still has nausea especially with eating. However the Zofran seems to work well. She d enies any bowel movements. And no vomiting. Acute changes through the night, including shortness of breath or chest pain. Objective - Vital Signs Vital signs: Vital Signs Temp 99.3 F 06/28/20 04:53 Pulse 97 06/28/20 08:00 Resp 18 06/28/20 08:00 BP 114/73 06/28/20 04:53 Pulse Ox 94 L 06/28/20 04:53 Intake & Output 06/27/20 06/28/20 06/28/20 18:59 06:59 18:59 Intake Total 2263.377 1200 360 Balance 2263.377 1200 360 Intake: Intake, IV Titration 8625.211 6903 Amount Heparin Sod,Pork in 0.45% 183.377 NaCl 25,000 unit In 0.45 % NaCl 1 250ml.bag @ 18 UNITS/KG/HR 15.676 mls/hr IV .[id number] [facility] Rx#: [id number] Sodium Chloride 0.9% 1, 1100 1200 000 ml @ 100 mls/hr IV . Q10H [facility] Rx#:[id number] Oral 980 360 Other: Voiding Method Toilet Toilet Toilet # Voids 3 3 3 - Exam General appearance: The patient is alert, oriented, in no acute distress. HET: Head is normocephalic and atraumatic. Neck: Supple without lymphadenopathy. Trachea midline. Heart: S1 S2. Regular rate and rhythm. Lungs: No crackles or wheezes are heard. Abdomen: Soft, fused tenderness, worse in epigastric area, nondistended. Extremities: Normal skin color and turgor. No cyanosis, rash, ulceration, clubbing, or edema. Radial and pedal pulses are 2/4 bilaterally. Neurological: No focal deficits. Strength and sensation are grossly intact. - Labs CBC & Chem 7: 06/28/20 04:42 06/28/20 04:42 Labs: Abnormal Lab Results - Last 24 Hours (Table) 06/27/20 06/27/20 06/28/20 Range/Units 09:33 17:00 04:42 RBC 3.49 L (4.10-5.20) X 10*6/uL Hgb 10.4 L (12.0-15.0) g/dL Hct 33.0 L (37.2-46.3) % MCHC 31.5 L (32.0-37.0) g/dL APTT 89.0 H 64.5 H (22.0-30.0) sec Potassium (3.5-5.5) mmol/L BUN (9.0-27.0) mg/dL Calcium (8.7-10.3) mg/dL ALT (8-44) U/L Total Protein (6.2-8.2) g/dL Albumin (3.80-4.90) g/dL 06/28/20 06/28/20 Range/Units 04:42 04:42 RBC (4.10-5.20) X 10*6/uL Hgb (12.0-15.0) g/dL Hct (37.2-46.3) % MCHC (32.0-37.0) g/dL APTT 48.2 H (22.0-30.0) sec Potassium 3.4 L (3.5-5.5) mmol/L BUN <5.0 L (9.0-27.0) mg/dL Calcium 8.2 L (8.7-10.3) mg/dL ALT <8 L (8-44) U/L Total Protein 5.7 L (6.2-8.2) g/dL Albumin 3.70 L (3.80-4.90) g/dL Assessment and Plan Assessment: 1. Portal vein thrombosis 2. Epigastric pain 3. Nausea and vomiting 4. History of GERD 5. History of esophageal stricture status post balloon dilation 4, last dilation 4 years ago Plan: 1. Supportive care 2. Continue with heparin drip until tomorrow and will defer to hematology to transition to oral anticoagulation 3. Hematology on consult, appreciate their recommendations and workup 4. CT of abdomen reviewed 5. Liver ultrasound ordered and reviewed 6. Continue clear liquid diet 7. There is no acute indication for any vascular surgical intervention at this time, continue anticoagulation. If symptoms worsen would need to consider transfer to higher level of care. The impression and plan of care has been dictated as directed. I performed a history and examination of this patient, discussed the same with the dictator. I agree with the dictator's note ,documented as a scribe. Any additional findings or plans will be noted.
[2020-06-28] MEDS ORDERED: POTASSIUM CHLORIDE ER 20 MEQ TAB.ER PO STA (10:48)
--- NOTE | 2020-06-28 10:53 | P.PN ---
Subjective Progress Note Date: 06/28/20 Principal diagnosis: abdominal pain A 30-year-old female past medical history of ADHD, GERD, and esophageal narrowing resulting in need for esophageal dilation presented to the ER initially with complaint of abdominal pain and nausea and vomiting. Initially in the ER she underwent an extensive evaluation with a CBC, CMP and lipase all with unremarkable findings. Gallbladder ultrasound was negative and she was subsequently discharged home. She reports a lot of the next day with continued nausea, vomiting, and pain. 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 She was started on heparin drip and admitted for further monitoring. She continued to have significant nausea and vomiting and abdominal pain. It has been slowly improving since getting of her hospital stay. She underwent a liver ultrasound which was negative for signs of cirrhosis. Her only provoking factor was found to be that she was on oral contraceptives. She does report a mother with a history of lupus and a paternal grandmother with a history of clotting problems. Patient seen and examined at bedside. She continues to have some abdominal pain is mostly epigastric with radiation to the left, it has been slowly improving. She is still nauseated every time she eats. She denies any chest pain or shortness of breath. She has no history of blood clots in the past. She has been on oral contraceptives since age 18 secondary to difficulty with regulating her period. No recent surgeries. She does report a rash approximately one month ago that went over her upper face and onto her head it responded to steroid cream. She denies any unusual ulceration. No arthralgias. She has a history of headaches which remain unchanged and she attributes distress. She denies any blood in her stool or blood in her urine. General: Ill appearing, no distress, appears at stated age Derm: warm, dry Head: atraumatic, normocephalic, symmetric Eyes: EOMI, no lid lag, anicteric sclera Mouth: no lip lesion, mucus membranes moist Cardiovascular: S1S2 reg, no murmur, positive posterior tibial pulse bilateral, Lungs: CTA bilateral, no rhonchi, no rales , no accessory muscle use Abdominal: soft, tender to palpation epigastric and left upper quadrant, no guarding, no appreciable organomegaly Ext: no gross muscle atrophy, no edema, no contractures Neuro: CN II-XI grossly intact, no focal neuro deficits Psych: Alert, oriented, appropriate affect Assessments: Portal vein thrombosis -Vascular surgery recs appreciated - oncology consultation -Continue with heparin drip. Prescription for Eliquis sent to pharmacy to check coverage -Patient counseled on the importance of coming off of oral contraceptives at home and seeking alternate method of control -Patient counseled on blood thinner usage and need to switch if becomes -Check lupus anticoagulant. Await oncology evaluation prior to ordering remainder of hypercoagulable workup. -Pain and nausea control. Normochromic normocytic anemia -Starting after heparin drip -Follow CBC closely Suspect ischemic colitis -Pain control -Continue with diet GERD -Continue with Pepcid ADHD -Resume home meds on discharge DVT prophylaxis: on heparin gtt Discussed with: patient, nursing Anticipated discharge: 1-[address]: home A total of 35 minutes was spent on the care of this complex patient more than 50% of the time was spent in counseling and care coordination. Objective - Vital Signs Vital signs: Vital Signs Temp 99.3 F 06/28/20 04:53 Pulse 97 06/28/20 08:00 Resp 18 06/28/20 08:00 BP 114/73 06/28/20 04:53 Pulse Ox 94 L 06/28/20 04:53 Intake & Output 06/27/20 06/28/20 06/28/20 18:59 06:59 18:59 Intake Total 2263.377 1200 360 Balance 2263.377 1200 360 Intake: Intake, IV Titration 6490.190 5019 Amount Heparin Sod,Pork in 0.45% 183.377 NaCl 25,000 unit In 0.45 % NaCl 1 250ml.bag @ 18 UNITS/KG/HR 15.676 mls/hr IV .[id number] [facility] Rx#: [id number] Sodium Chloride 0.9% 1, 1100 1200 000 ml @ 100 mls/hr IV . Q10H [facility] Rx#:[id number] Oral 980 360 Other: Voiding Method Toilet Toilet Toilet # Voids 3 3 3 - Labs CBC & Chem 7: 06/28/20 04:42 06/28/20 04:42 Labs: Abnormal Lab Results - Last 24 Hours (Table) 06/27/20 06/27/20 06/28/20 Range/Units 09:33 17:00 04:42 RBC 3.49 L (4.10-5.20) X 10*6/uL Hgb 10.4 L (12.0-15.0) g/dL Hct 33.0 L (37.2-46.3) % MCHC 31.5 L (32.0-37.0) g/dL APTT 89.0 H 64.5 H (22.0-30.0) sec Potassium (3.5-5.5) mmol/L BUN (9.0-27.0) mg/dL Calcium (8.7-10.3) mg/dL ALT (8-44) U/L Total Protein (6.2-8.2) g/dL Albumin (3.80-4.90) g/dL 06/28/20 06/28/20 Range/Units 04:42 04:42 RBC (4.10-5.20) X 10*6/uL Hgb (12.0-15.0) g/dL Hct (37.2-46.3) % MCHC (32.0-37.0) g/dL APTT 48.2 H (22.0-30.0) sec Potassium 3.4 L (3.5-5.5) mmol/L BUN <5.0 L (9.0-27.0) mg/dL Calcium 8.2 L (8.7-10.3) mg/dL ALT <8 L (8-44) U/L Total Protein 5.7 L (6.2-8.2) g/dL Albumin 3.70 L (3.80-4.90) g/dL
--- NOTE | 2020-06-28 11:05 | CDI ---
Documentation Clarification Form Date: 06/28/2020 10:52:57 AM From: Diane ReaJulianLORETTA, CCDS Admit Date: 06/26/2020 03:35:00 PM Patient Name: Snehal Martinez Visit Number: [id number] Discharge Date: ATTENTION: The Clinical Documentation Specialists (CDI) and [facility] Coding Staff appreciate your assistance in clarifying documentation. Please respond to the clarification below the line at the bottom and electronically sign. The CDI & [facility] Coding staff will review the response and follow-up if needed. Please note: Queries are made part of the Legal Health Record. If you have any questions, please contact the author of this message via ITS. Dr. Dany Reyes: Anemia is documented in the 06/27 Attending Progress Note: "Labs revealed leukocytosis with WBC count of 11.77 and anemia with hemoglobin of 10.7 (previously 13.6 yesterday). Normocytic normochromic anemia. History/Risk Factors per the patient's Past Medical History and the 06/27 Vascular Surgery Consult: GERD, History of Esophageal Stricture status post balloon dilation >4 years ago, ADHD. Clinical indicators: Presented to the ED 06/26 with Abdominal pain, Nausea & Vomiting. Per the 06/26 History & Physical Assessment: Portal Vein Thrombosis. Hemoglobin 06/26: 13.6, 06/27: 10.7; 06/28: 10.4 Hematocrit 06/26: 40.1; 06/27: 32.7; 06/28: 33.0 06/26 CT Abdomen/Pelvis: Portal Vein Thrombosis suspected with extension into the superior mesenteric vein, Splenoportal confluence and inflammatory changes. 06/26 US Liver: Limited exam demonstrates limited visualization portal vein due to overlying bowel gas. No definite blood flow detected within the visualized portal vein by ultrasound. Findings suspicious for portal vein thrombosis. Treatment 06/26: IV Zofran, IV Fluid bolus 1,00 mls @ 999 mls/hr q1H, IV Pepcid, IV Dilaudid x5, IV Protonix, IV Heparin drip, IV Compazine, Repeat CBC 06/29. In order to capture the severity of condition, please clarify the type of anemia and etiology if known:. Acute blood loss anemia Acute on chronic blood loss anemia Chronic blood loss anemia Hemolytic anemia Drug induced anemia Unable to determine Other, please specify (Last Form Revision: July 2019) MTDD
--- NOTE | 2020-06-28 15:46 | US ---
EXAMINATION TYPE: US venous doppler duplex LE BI DATE OF EXAM: 06/28/2020 2:48 PM COMPARISON: CT 06/26/2020 CLINICAL HISTORY: RLE edema. On Heparin. Portal vein thrombus. No redness. SIDE PERFORMED: Bilateral TECHNIQUE: The lower extremity deep venous system is examined utilizing real time linear array sonog himanshu with graded compression, doppler sonography and color-flow sonography. VESSELS IMAGED: Common Femoral Vein Deep Femoral Vein Greater Saphenous Vein * Femoral Vein Popliteal Vein Small Saphenous Vein * Proximal Calf Veins (* superficial vessels) There is normal flow, compressibility, vascular waveforms. Right Leg: Negative for DVT, Rouleaux flow visualized Left Leg: Negative for DVT, Rouleaux flow visualized IMPRESSION: No evident deep venous thrombosis at or above the knees.
[2020-06-28 18:44] LABS: Reticulocyte % 1.75 % (0.10-1.80)
--- NOTE | 2020-06-28 22:48 | P.CONS ---
History of Present Illness - Reason for Consult Consult date: 06/28/20 Portal vein Thrombosis Requesting physician: Piper Ng - Chief Complaint Abdominal Pain - History of Present Illness Michael is a pleasant young 30 year old female who presented to [facility] with complaints of persistent and worsening abdominal pain and nausea and vomiting. She states she has always struggled with acid reflux and had a p rocedure to dilate her esophagus through HFH a couple years prior. She has been on oral contraceptives for 12 years, same type. She states this has been to regulate her menses and the heaviness of her bleeding. She denies prior or children. She is not currently sexually active. She denies tobacco use. 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 She denies history of thrombus in past, denies personal history of cancer. In CT abdomen and Pelvis revealed portal vein thrombus extends to mesenteric vein. There appeared to be some external inflammation surrounding spleen/pancreas. WBC increased 14.7 and total bili mild elevation 1.4. She is currently on a heparin drip. Review of Systems All systems: negative Constitutional: Reports as per HPI Past Medical History Past Medical History: No Reported History Additional Past Medical History / Comment(s): GERD, acid reflux, ADHD History of Any Multi-Drug Resistant Organisms: None Reported Past Surgical History: Tonsillectomy Additional Past Surgical History / Comment(s): right side abdomen tumor removal, esophagus dilation Past Anesthesia/Blood Transfusion Reactions: No Reported Reaction Additional Past Anesthesia/Blood Transfusion Reaction / Comm: pt states she wakes up "paniced" Past Psychological History: ADD/ADHD Smoking Status: Never smoker Past Alcohol Use History: Occasional Past Drug Use History: None Reported - Past Family History Father Family Medical History: CVA/TIA, Diabetes Mellitus, Thyroid Disorder Mother Family Medical History: Hypertension, Thyroid Disorder Medications and Allergies Home Medications Medication Instructions Recorded Confirmed Type Cetirizine HCl [Zyrtec] 10 mg PO DAILY 06/25/20 06/26/20 History Famotidine [Pepcid] 20 mg PO DAILY PRN 06/25/20 06/26/20 History Methylphenidate HCl [Concerta] 27 mg PO DAILY 06/25/20 06/26/20 History Multivitamins, Thera [Multivitamin 1 tab PO DAILY 06/25/20 06/26/20 History (formulary)] Norgestimate-Ethinyl Estradiol 1 tab PO DAILY 06/25/20 06/26/20 History [Tri-Sprintec Tablet] Ascorbic Acid [Vitamin C] 500 mg PO DAILY 06/26/20 06/26/20 History Apixaban [Eliquis Starter Pack 0 mg PO DIRECTED 30 Days #1 pack 06/28/20 Rx (for VTE)] Allergies Allergy/AdvReac Type Severity Reaction Status Date / Time No Known Allergies Allergy Verified 06/26/20 12:36 Physical Exam Vitals: Vital Signs Temp Pulse Resp BP Pulse Ox 06/28/20 11:55 99.4 F 94 16 126/78 96 06/28/20 08:00 97 18 06/28/20 04:53 99.3 F 108 H 18 114/73 94 L 06/27/20 14:27 98.8 F 97 18 119/79 92 L Intake and Output 06/27/20 06/28/20 06/28/20 22:59 06:59 14:59 Intake Total 1959 1200 360 Balance 1959 1200 360 Intake: Intake, IV Titration 1100 1200 Amount Sodium Chloride 0.9% 1, 1100 1200 000 ml @ 100 mls/hr IV . Q10H [facility] Rx#:[id number] Oral 860 360 Other: Voiding Method Toilet Toilet # Voids 3 3 3 - Constitutional General appearance: cooperative, no acute distress - EENT Eyes: EOMI, PERRLA ENT: NA/AT, normal oropharynx - Neck Neck: normal ROM - Respiratory Respiratory: bilateral: diminished (bibasilar) - Cardiovascular Rhythm: regular Heart sounds: normal: S1, S2 leg Peripheral Edema: right: 1+, left: Trace - Gastrointestinal General gastrointestinal: soft, tenderness - Integumentary Integumentary: pale - Neurologic Neurologic: CNII-XII intact - Musculoskeletal Musculoskeletal: strength equal bilaterally - Psychiatric Psychiatric: A&O x's 3, appropriate affect, intact judgment & insight Results CBC & Chem 7: 06/28/20 04:42 06/28/20 04:42 Labs: Abnormal Lab Results - Last 24 Hours (Table) 06/27/20 06/28/20 06/28/20 Range/Units 17:00 04:42 04:42 RBC 3.49 L (4.10-5.20) X 10*6/uL Hgb 10.4 L (12.0-15.0) g/dL Hct 33.0 L (37.2-46.3) % MCHC 31.5 L (32.0-37.0) g/dL APTT 64.5 H 48.2 H (22.0-30.0) sec Potassium (3.5-5.5) mmol/L BUN (9.0-27.0) mg/dL Calcium (8.7-10.3) mg/dL ALT (8-44) U/L Total Protein (6.2-8.2) g/dL Albumin (3.80-4.90) g/dL 06/28/20 Range/Units 04:42 RBC (4.10-5.20) X 10*6/uL Hgb (12.0-15.0) g/dL Hct (37.2-46.3) % MCHC (32.0-37.0) g/dL APTT (22.0-30.0) sec Potassium 3.4 L (3.5-5.5) mmol/L BUN <5.0 L (9.0-27.0) mg/dL Calcium 8.2 L (8.7-10.3) mg/dL ALT <8 L (8-44) U/L Total Protein 5.7 L (6.2-8.2) g/dL Albumin 3.70 L (3.80-4.90) g/dL CT scan - abdomen: report reviewed CT scan - chest: report reviewed Assessment and Plan Plan: Portal Vein Thrombosis: - Has been on Contraceptives for greater than 12 years, difficult to claim as provoked. - Discontinue Contraceptives - Recommend further imagining for extrinsic compression and potential physiological etiology of PVT - GI to evaluate - EGD versus outpatient EUS maybe consisdered - Outpatient Hypercoag work-up - Supportive care to continue - Await Vascular and GI Eval - PLan to discharge on DAC given Lupus anticoag neg
[2020-06-29 01:01] LABS: Ferritin 149.5 ng/mL (10.0-291.0)
[2020-06-29 01:32] LABS: % Iron Saturation 3.75 (12.00-45.00)
[2020-06-29] MEDS: HYDROmorphone 0.5 MG/0.5 ML SYRINGE IVP PRN ×2 (02:04→17:11)
[2020-06-29] MEDS: HYDROmorphone 1 MG/ML 1 ML SYRINGE IVP PRN ×2 (05:09→08:42)
[2020-06-29] MEDS: SODIUM CHLORIDE 0.9% 1,000 ML IV SCH ×3 (05:09→22:08)
[2020-06-29] MEDS: HEPARIN SOD,PORK IN 0.45% NACL 25,000 UNIT in 0.45% NACL 1 250ML.BAG IV SCH ×2 (05:18→22:08)
[2020-06-29 07:12] LABS: Prothrombin Time 10.4 sec (9.0-12.0)
[2020-06-29] MEDS: METHYLPHENIDATE HCL 27 MG PO SCH (08:37)
[2020-06-29] MEDS: ONDANSETRON 4 MG/2 ML VIAL IVP PRN ×2 (08:42→18:40)
--- NOTE | 2020-06-29 10:42 | CDI ---
Documentation Clarification Form Date: 06/28/2020 10:52:00 AM From: Diane ReaJulianLORETTA null, CCDS Admit Date: 06/26/2020 03:35:00 PM Patient Name: Snehal Martinez Visit Number: [id number] Discharge Date: ATTENTION: The Clinical Documentation Specialists (CDI) and [facility] Coding Staff appreciate your assistance in clarifying documentation. Please respond to the clarification below the line at the bottom and electronically sign. The CDI & [facility] Coding staff will review the response and follow-up if needed. Please note: Queries are made part of the Legal Health Record. If you have any questions, please contact the author of this message via ITS. Dr. Piper Ng: Anemia is documented in the 06/27 Attending Progress Note: "Labs revealed leukocytosis with WBC count of 11.77 and anemia with hemoglobin of 10.7 (previously 13.6 yesterday). Normocytic normochromic anemia. History/Risk Factors per the patient's Past Medical History and the 06/27 Vascular Surgery Consult: GERD, History of Esophageal Stricture status post balloon dilation >4 years ago, ADHD. Clinical indicators: Presented to the ED 06/26 with Abdominal pain, Nausea & Vomiting. Per the 06/26 History & Physical Assessment: Portal Vein Thrombosis. Hemoglobin 06/26: 13.6, 06/27: 10.7; 06/28: 10.4 Hematocrit 06/26: 40.1; 06/27: 32.7; 06/28: 33.0 06/26 CT Abdomen/Pelvis: Portal Vein Thrombosis suspected with extension into the superior mesenteric vein, Splenoportal confluence and inflammatory changes. 06/26 US Liver: Limited exam demonstrates limited visualization portal vein due to overlying bowel gas. No definite blood flow detected within the visualized portal vein by ultrasound. Findings suspicious for portal vein thrombosis. Treatment 06/26: IV Zofran, IV Fluid bolus 1,00 mls @ 999 mls/hr q1H, IV Pepcid, IV Dilaudid x5, IV Protonix, IV Heparin drip, IV Compazine, Repeat CBC 06/29. In order to capture the severity of condition, please clarify the type of anemia and etiology if known:. Acute blood loss anemia Acute on chronic blood loss anemia Chronic blood loss anemia Hemolytic anemia Drug induced anemia Unable to determine Other, please specify (Last Form Revision: July 2019) unkown likely mild Fe deficiency as per my note MTDD
--- NOTE | 2020-06-29 10:44 | P.PN ---
Subjective Progress Note Date: 06/29/20 Principal diagnosis: Portal vein thrombosis She was seen and examined lying in bed. She states her abdominal pain continues to improve. She states she still has some mild nausea, worse in the morning. Doing well on her clear liquid diet. Zofran is working well for nausea. She had a very small bowel movement this morning. No vomiting. Acute changes through the night, including shortness of breath or chest pain. Objective - Vital Signs Vital signs: Vital Signs Temp 98.4 F 06/29/20 05:00 Pulse 91 06/29/20 05:00 Resp 16 06/29/20 05:00 BP 120/81 06/29/20 05:00 Pulse Ox 96 06/29/20 05:00 Intake & Output 06/28/20 06/29/20 06/29/20 18:59 06:59 18:59 Intake Total 4379.207 6066.532 Balance 5433.903 5884.532 Intake: Intake, IV Titration 045.695 3435.532 Amount Heparin Sod,Pork in 0.45% 246.174 214.532 NaCl 25,000 unit In 0.45 % NaCl 1 250ml.bag @ 18 UNITS/KG/HR 15.676 mls/hr IV .[id number] [facility] Rx#: [id number] Sodium Chloride 0.9% 1, 1200 000 ml @ 100 mls/hr IV . Q10H [facility] Rx#:[id number] Oral 1600 520 Other: Voiding Method Toilet # Voids 3 4 - Exam General appearance: The patient is alert, oriented, in no acute distress. HET: Head is normocephalic and atraumatic. Neck: Supple without lymphadenopathy. Trachea midline. Heart: S1 S2. Regular rate and rhythm. Lungs: No crackles or wheezes are heard. Abdomen: Soft, fused tenderness, worse in epigastric area, nondistended. Extremities: Normal skin color and turgor. No cyanosis, rash, ulceration, clubbing, or edema. Radial and pedal pulses are 2/4 bilaterally. Neurological: No focal deficits. Strength and sensation are grossly intact. - Labs CBC & Chem 7: 06/29/20 06:24 06/28/20 04:42 Labs: Abnormal Lab Results - Last 24 Hours (Table) 06/28/20 06/29/20 Range/Units 04:42 06:24 APTT 49.0 H (22.0-30.0) sec Iron 14 L (50-170) ug/dL % Saturation 3.75 L (12.00-45.00) Assessment and Plan Assessment: 1. Portal vein thrombosis 2. Epigastric pain 3. Nausea and vomiting 4. History of GERD 5. History of esophageal stricture status post balloon dilation 4, last dilation 4 years ago Plan: 1. Supportive care 2. Continue with heparin drip until tomorrow and will defer to hematology to transition to oral anticoagulation 3. Hematology on consult, appreciate their recommendations and workup 4. CT of abdomen reviewed 5. Liver ultrasound ordered and reviewed 6. Continue clear liquid diet 7. There is no acute indication for any vascular surgical intervention at this time, continue anticoagulation. If symptoms worsen would need to consider transfer to higher level of care. Thank you for this consultation, we will sign off at this time. The impression and plan of care has been dictated as directed. I performed a history and examination of this patient, discussed the same with the dictator. I agree with the dictator's note ,documented as a scribe. Any additional findings or plans will be noted.
[2020-06-29] MEDS: PANTOPRAZOLE 40 MG/10 ML VIAL IVP SCH ×2 (11:04→20:23)
[2020-06-29 11:09] LABS: Basophils # (A) 0.04 X 10*3/uL (0.00-0.10); Basophils % (A) 0.7 %; Eosinophils # (A) 0.14 X 10*3/uL (0.04-0.35); Eosinophils % (A) 2.4 %; HCT 31.9 % (37.2-46.3); HGB 10.2 g/dL (12.0-15.0); Lymphocytes # (A) 1.95 X 10*3/uL (0.90-5.00); Lymphocytes % (A) 33.5 %; MCH 30.1 pg (27.0-32.0); MCV 94.1 fL (80.0-97.0); Mean Platelet Volume 9.7 fL (9.5-12.2); Monocytes # (A) 0.58 X 10*3/uL (0.20-1.00); Neutrophils % (A) 53.2 %; Platelet Count 287 X 10*3/uL (140-440); RBC 3.39 X 10*6/uL (4.10-5.20); RDW 12.7 % (11.5-14.5); WBC 5.82 X 10*3/uL (4.50-10.00)
[2020-06-29 11:32] VITALS: RESP 18
[2020-06-29 11:46] LABS: ALT 10 U/L (8-44); AST 17 U/L (13-35); African American GFR (CKD) 136.7 (60.0-200.0); Alkaline Phosphatase 89 U/L (41-126); Calcium 8.6 mg/dL (8.7-10.3); Chloride 104 mmol/L (96-109); Glucose 96 mg/dL (70-110); Magnesium 1.9 mg/dL (1.5-2.4); Potassium 3.9 mmol/L (3.5-5.5); Sodium 139 mmol/L (135-145); Total Bilirubin 0.5 mg/dL (0.2-1.2); Total Protein 5.8 g/dL (6.2-8.2)
[2020-06-29] MEDS: HYDROcodone/APAP 7.5-325MG 1 EACH TAB PO PRN ×2 (11:56→20:36)
--- NOTE | 2020-06-29 12:37 | P.PN ---
Subjective Progress Note Date: 06/29/20 Principal diagnosis: New PVT She is feeling good, no complaints of bleeding. Her iron is low and Parental iron given as she does have known heavy menses which is anticipated to worsen with coming off contraception and being on blood thinner. Mild headache in afternoon, frontal. Monitor Objective - Vital Signs Vital signs: Vital Signs Temp 98.7 F 06/29/20 11:27 Pulse 87 06/29/20 11:27 Resp 18 06/29/20 11:27 BP 122/81 06/29/20 11:27 Pulse Ox 95 06/29/20 11:27 Intake & Output 06/28/20 06/29/20 06/29/20 18:59 06:59 18:59 Intake Total 0822.308 0328.532 Balance 3267.922 6735.532 Intake: Intake, IV Titration 745.392 4445.532 Amount Heparin Sod,Pork in 0.45% 246.174 214.532 NaCl 25,000 unit In 0.45 % NaCl 1 250ml.bag @ 18 UNITS/KG/HR 15.676 mls/hr IV .[id number] [facility] Rx#: [id number] Sodium Chloride 0.9% 1, 1200 000 ml @ 100 mls/hr IV . Q10H [facility] Rx#:[id number] Oral 1600 520 Other: Voiding Method Toilet # Voids 3 4 - Exam - Constitutional General appearance: cooperative, no acute distress - EENT Eyes: EOMI, PERRLA ENT: NA/AT, normal oropharynx - Neck Neck: normal ROM - Respiratory Respiratory: bilateral: diminished (bibasilar) - Cardiovascular Rhythm: regular Heart sounds: normal: S1, S2 leg Peripheral Edema: right: 1+, left: Trace - Gastrointestinal General gastrointestinal: soft, tenderness - Integumentary Integumentary: pale - Neurologic Neurologic: CNII-XII intact - Musculoskeletal Musculoskeletal: strength equal bilaterally - Psychiatric Psychiatric: A&O x's 3, appropriate affect, intact judgment & insight - Labs CBC & Chem 7: 06/29/20 06:24 06/29/20 06:24 Labs: Abnormal Lab Results - Last 24 Hours (Table) 06/28/20 06/29/20 06/29/20 Range/Units 04:42 06:24 06:24 RBC 3.39 L (4.10-5.20) X 10*6/uL Hgb 10.2 L (12.0-15.0) g/dL Hct 31.9 L (37.2-46.3) % APTT 49.0 H (22.0-30.0) sec Calcium (8.7-10.3) mg/dL Iron 14 L (50-170) ug/dL % Saturation 3.75 L (12.00-45.00) Total Protein (6.2-8.2) g/dL 06/29/20 Range/Units 06:24 RBC (4.10-5.20) X 10*6/uL Hgb (12.0-15.0) g/dL Hct (37.2-46.3) % APTT (22.0-30.0) sec Calcium 8.6 L (8.7-10.3) mg/dL Iron (50-170) ug/dL % Saturation (12.00-45.00) Total Protein 5.8 L (6.2-8.2) g/dL Assessment and Plan Plan: Portal Vein Thrombosis: - Has been on Contraceptives for greater than 12 years, difficult to claim as only etiology of provoked, therefore a full work-up for contributing and other etiologies is required. However this can be very likely provoked from sedetary and hormone from oral contraceptives. - Will check Anti-phospholipid antibodies, CHRISTA, RA, and Beta glyco2 protein levels prior to discharge as well to ensure DOAC can be recommended. . - Discontinue Contraceptives - Recommend further imagining for extrinsic compression and potential physiological etiology of PVT - GI to evaluate - EGD and colonoscopy to assess for underlying GI malignancy - this can be done outpatient Parental Iron ordered - Iron deficiency anemia (does not need to stay inpatient to receive all doses ordered can complete in office) B12 400s await MMA Discussed with patient and mother today
[2020-06-29] MEDS: SODIUM FERRIC GLUCONAT-SUCROSE 125 MG in SODIUM CHLORIDE 0.9% 100 ML IVPB SCH (13:24)
--- NOTE | 2020-06-29 13:47 | P.PN ---
Subjective Progress Note Date: 06/29/20 (delayed charting seen at 0920) Principal diagnosis: abdominal pain A 30-year-old female past medical history of ADHD, GERD, and esophageal narrowing resulting in need for esophageal dilation presented to the ER initially with complaint of abdominal pain and nausea and vomiting. Initially in the ER she underwent an extensive evaluation with a CBC, CMP and lipase all with unremarkable findings. Gallbladder ultrasound was negative and she was subsequently discharged home. She reports a lot of the next day with continued nausea, vomiting, and pain. 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 She was started on heparin drip and admitted for further monitoring. She continued to have significant nausea and vomiting and abdominal pain. It has been slowly improving since getting of her hospital stay. She underwent a liver ultrasound which was negative for signs of cirrhosis. Her only provoking factor was found to be that she was on oral contraceptives. She does report a mother with a history of lupus and a paternal grandmother with a history of clotting problems. Hematology consulted and lower extremity venous doppler negative. GI consulted with hx of esophageal stricutre. Patient seen and examined at bedside. She continues to have nausea that is worse with eating/ stomach distension. Pain is getting better. No chest pain, SOB, edema. All questions answered. General: not toxic, no distress, appears at stated age Derm: warm, dry Head: atraumatic, normocephalic, symmetric Eyes: EOMI, no lid lag, anicteric sclera Mouth: no lip lesion, mucus membranes moist Cardiovascular: S1S2 reg, no murmur, positive posterior tibial pulse bilateral, Lungs: CTA bilateral, no rhonchi, no rales , no accessory muscle use Abdominal: soft, tender to palpation epigastric, no guarding, no appreciable organomegaly Ext: no gross muscle atrophy, no edema, no contractures Neuro: CN II-XI grossly intact, no focal neuro deficits Psych: Alert, oriented, appropriate affect Assessments: Portal vein thrombosis -Vascular surgery recs appreciated -Oncology recs appreciated -Await GI recs -Continue with heparin drip will transition to eliquis once all testing completed. -Patient counseled on the importance of coming off of oral contraceptives at home and seeking alternate method of control -Patient counseled on blood thinner usage and need to switch if becomes -Check lupus anticoagulant. Await oncology evaluation prior to ordering remainder of hypercoagulable workup. -Pain and nausea control. Normochromic normocytic anemia -Starting after heparin drip -Follow CBC closely - possible mild iron deficiency with oral iron on discharge Constipation - miralax daily Suspect ischemic colitis -Pain control -Continue with diet GERD -Continue with Pepcid ADHD -Resume home meds on discharge DVT prophylaxis: on heparin gtt Discussed with: patient, nursing Anticipated discharge: 1-[address]: home A total of 35 minutes was spent on the care of this complex patient more than 50% of the time was spent in counseling and care coordination. Objective - Vital Signs Vital signs: Vital Signs Temp 98.7 F 06/29/20 11:27 Pulse 87 06/29/20 11:27 Resp 18 06/29/20 11:27 BP 122/81 06/29/20 11:27 Pulse Ox 95 06/29/20 11:27 Intake & Output 06/28/20 06/29/20 06/29/20 18:59 06:59 18:59 Intake Total 2583.265 5640.532 Balance 6230.392 1967.532 Intake: Intake, IV Titration 163.592 9579.532 Amount Heparin Sod,Pork in 0.45% 246.174 214.532 NaCl 25,000 unit In 0.45 % NaCl 1 250ml.bag @ 18 UNITS/KG/HR 15.676 mls/hr IV .[id number] [facility] Rx#: [id number] Sodium Chloride 0.9% 1, 1200 000 ml @ 100 mls/hr IV . Q10H [facility] Rx#:[id number] Oral 1600 520 Other: Voiding Method Toilet # Voids 3 4 - Labs CBC & Chem 7: 06/29/20 06:24 06/29/20 06:24 Labs: Abnormal Lab Results - Last 24 Hours (Table) 06/28/20 06/29/20 06/29/20 Range/Units 04:42 06:24 06:24 RBC 3.39 L (4.10-5.20) X 10*6/uL Hgb 10.2 L (12.0-15.0) g/dL Hct 31.9 L (37.2-46.3) % APTT 49.0 H (22.0-30.0) sec Calcium (8.7-10.3) mg/dL Iron 14 L (50-170) ug/dL % Saturation 3.75 L (12.00-45.00) Total Protein (6.2-8.2) g/dL 06/29/20 Range/Units 06:24 RBC (4.10-5.20) X 10*6/uL Hgb (12.0-15.0) g/dL Hct (37.2-46.3) % APTT (22.0-30.0) sec Calcium 8.6 L (8.7-10.3) mg/dL Iron (50-170) ug/dL % Saturation (12.00-45.00) Total Protein 5.8 L (6.2-8.2) g/dL
[2020-06-29 14:01] LABS: Blood Urea Nitrogen <5.0 mg/dL (9.0-27.0); Non-African American GFR(CKD) 117.9 (60.0-200.0)
[2020-06-29 14:54] LABS: APTT 150 Sec(s) (<43); APTT 1:1 Mix 85 Sec(s) (<43); DRVVT 1:1 Mix 46 Sec(s) (<44); DRVVT Confirmation Positive (Negative); Dilute Russell Viper Venom 57 Sec(s) (<44); Hexagonal Phase Neutralization Positive (Negative)
[2020-06-29] MEDS ORDERED: polyethylene glycoL 3350 17 GM POWD.PACK PO SCH (21:00)
[2020-06-29 22:54] LABS: Cardiolipin IgA Antibody <0.5 U/mL
[2020-06-30 00:07] LABS: Cardiolipin Ab IgG Interp NEGATIVE (NEGATIVE); Cardiolipin Ab IgM Interp NEGATIVE (NEGATIVE); Cardiolipin IgM Antibody 0.7 U/mL
[2020-06-30] MEDS: HYDROmorphone 0.5 MG/0.5 ML SYRINGE IVP PRN (01:55)
[2020-06-30 04:10] VITALS: BP 110/71; PULSE 82; TEMP 98.4
[2020-06-30] MEDS: HYDROcodone/APAP 7.5-325MG 1 EACH TAB PO PRN ×2 (04:39→10:33)
--- NOTE | 2020-06-30 07:11 | P.CONS ---
History of Present Illness - Reason for Consult Consult date: 06/29/20 GERD Requesting physician: Alyssa Flores - Chief Complaint Abdominal pain - History of Present Illness 30-year-old female with multiple medical comorbidities including ADHD, GERD and reports of prior EGD with dilation as per the patient who presented to the [facility] due to complaints of abdominal pain. She reported severe epigastric abdominal pain with associated nausea and vomiting. Computed tomography scan performed in evaluation showed portal vein thrombosis and currently the patient has been seen by the hematology/oncology service and on anticoagulation therapy. Ultrasound of the liver also confirmed portal vein thrombosis with venous ultrasound negative for DVTs bilaterally. She denies any ongoing disorder in the past or prior tobacco use. She is on oral contraceptive therapy for the past 12 years. The patient also reports a long-standing history of GERD since childhood. Currently the patient is on home omeprazole therapy. She reports r equiring EGD with dilations in the past and last had this approximately 4 years ago. Currently she is denying any dysphagia or odynophagia. No reports of any change in bowel habits or signs or symptoms of GI bleeding. Review of Systems REVIEW OF SYSTEMS: CONSTITUTIONAL: Denies any fevers, chills, weight change or fatigue. CARDIOVASCULAR: Denies any chest pain, palpitations high or low blood pressures RESPIRATORY: Denies any shortness of breath, hemoptysis or cough. GENITOURINARY: No dysuria or hematuria. MUSCULOSKELETAL: No weakness reported. SKIN: Denies any new rashes or lesions, jaundice or pallor. PSYCHIATRIC: Denies any depression or anxiety. NEUROLOGY: Denies headache, denies any new focal deficits. EARS/NOSE/THROAT: No recent hearing change, congestion, nasal discharge or sore throat. EYES: No pain in eyes, discharge or change in vision. GASTROINTESTINAL: As per HPI. Past Medical History Past Medical History: No Reported History Additional Past Medical History / Comment(s): GERD, acid reflux, ADHD History of Any Multi-Drug Resistant Organisms: None Reported Past Surgical History: Tonsillectomy Additional Past Surgical History / Comment(s): right side abdomen tumor removal, esophagus dilation Past Anesthesia/Blood Transfusion Reactions: No Reported Reaction Additional Past Anesthesia/Blood Transfusion Reaction / Comm: pt states she wakes up "paniced" Past Psychological History: ADD/ADHD Smoking Status: Never smoker Past Alcohol Use History: Occasional Past Drug Use History: None Reported - Past Family History Father Family Medical History: CVA/TIA, Diabetes Mellitus, Thyroid Disorder Mother Family Medical History: Hypertension, Thyroid Disorder Medications and Allergies Home Medications Medication Instructions Recorded Confirmed Type Cetirizine HCl [Zyrtec] 10 mg PO DAILY 06/25/20 06/26/20 History Famotidine [Pepcid] 20 mg PO DAILY PRN 06/25/20 06/26/20 History Methylphenidate HCl [Concerta] 27 mg PO DAILY 06/25/20 06/26/20 History Multivitamins, Thera [Multivitamin 1 tab PO DAILY 06/25/20 06/26/20 History (formulary)] Norgestimate-Ethinyl Estradiol 1 tab PO DAILY 06/25/20 06/26/20 History [Tri-Sprintec Tablet] Ascorbic Acid [Vitamin C] 500 mg PO DAILY 06/26/20 06/26/20 History Apixaban [Eliquis Starter Pack 0 mg PO DIRECTED 30 Days #1 pack 06/28/20 Rx (for VTE)] Allergies Allergy/AdvReac Type Severity Reaction Status Date / Time No Known Allergies Allergy Verified 06/26/20 12:36 Physical Exam Vitals: Vital Signs Temp Pulse Resp BP Pulse Ox 06/29/20 11:27 98.7 F 87 18 122/81 95 06/29/20 05:00 98.4 F 91 16 120/81 96 06/28/20 21:00 98.9 F 97 16 128/84 99 Intake and Output 06/28/20 06/29/20 06/29/20 22:59 06:59 14:59 Intake Total 2731.573 2728.532 Balance 7044.225 1092.532 Intake: Intake, IV Titration 811.811 9766.532 Amount Heparin Sod,Pork in 0.45% 246.174 214.532 NaCl 25,000 unit In 0.45 % NaCl 1 250ml.bag @ 18 UNITS/KG/HR 15.676 mls/hr IV .[id number] [facility] Rx#: [id number] Sodium Chloride 0.9% 1, 1200 000 ml @ 100 mls/hr IV . Q10H [facility] Rx#:[id number] Oral 1000 520 Other: # Voids 3 4 On physical examination, patient appears comfortable in no apparent distress. HEAD: Normocephalic, atraumatic. EYES: No scleral icterus. No conjunctival injection. MOUTH: No lesions, tongue midline. NECK: Trachea midline, no gross abnormalities. CHEST: Clear to auscultation with no wheezing or rhonchi appreciated. HEART: Regular rate and rhythm. ABDOMEN: Soft, nontender to palpation. Bowel sounds are positive. No organomegaly. No guarding or rigidity. EXTREMITIES: No pedal edema. SKIN: No rashes, no jaundice. NEUROLOGIC: Alert and oriented x3. No focal deficits. Results CBC & Chem 7: 06/29/20 06:24 06/29/20 06:24 Labs: Abnormal Lab Results - Last 24 Hours (Table) 06/28/20 06/28/20 06/29/20 Range/Units 04:42 04:42 06:24 RBC 3.39 L (4.10-5.20) X 10*6/uL Hgb 10.2 L (12.0-15.0) g/dL Hct 31.9 L (37.2-46.3) % APTT (22.0-30.0) sec Lupus Anticoag aPTT 150 H (<43) Sec(s) Lupus Anticoag PTT Mix 85 H (<43) Sec(s) Dil Ayden Viper Venom 57 H (<44) Sec(s) LA dRVVT Confirm Positive A (Negative) dRVVT 50:50 46 H (<44) Sec(s) Lupus Hexagonal Phase Positive A (Negative) BUN (9.0-27.0) mg/dL Calcium (8.7-10.3) mg/dL Iron 14 L (50-170) ug/dL % Saturation 3.75 L (12.00-45.00) Total Protein (6.2-8.2) g/dL 06/29/20 06/29/20 Range/Units 06:24 06:24 RBC (4.10-5.20) X 10*6/uL Hgb (12.0-15.0) g/dL Hct (37.2-46.3) % APTT 49.0 H (22.0-30.0) sec Lupus Anticoag aPTT (<43) Sec(s) Lupus Anticoag PTT Mix (<43) Sec(s) Dil Ayden Viper Venom (<44) Sec(s) LA dRVVT Confirm (Negative) dRVVT 50:50 (<44) Sec(s) Lupus Hexagonal Phase (Negative) BUN <5.0 L (9.0-27.0) mg/dL Calcium 8.6 L (8.7-10.3) mg/dL Iron (50-170) ug/dL % Saturation (12.00-45.00) Total Protein 5.8 L (6.2-8.2) g/dL US - abdomen: report reviewed (Portal vein thrombosis seen on ultrasound abdomen) Assessment and Plan (1) GERD (gastroesophageal reflux disease) Narrative/Plan: 30-year-old female presenting for abdominal pain and subsequently diagnosed with portal vein thrombosis of unknown etiology, currently undergoing hypercoagulable workup. Patient has long-standing history of reflux and reports prior EGDs with dilation, the last 4 years ago. Patient currently takes and antacid therapy on an as needed basis in outpatient setting. She reported taking omeprazole but Pepcid is listed in her home medications. Current Visit: Yes Status: Acute Code(s): K21.9 - GASTRO-ESOPHAGEAL REFLUX DISEASE WITHOUT ESOPHAGITIS SNOMED Code(s): 568025932 (2) Abdominal pain Current Visit: Yes Status: Acute Code(s): R10.9 - UNSPECIFIED ABDOMINAL PAIN SNOMED Code(s): 24369675 (3) Portal vein thrombosis Current Visit: Yes Status: Acute Code(s): I81 - PORTAL VEIN THROMBOSIS SNOMED Code(s): 71594716 Plan: Supportive care Okay for diet as tolerated Continue to monitor CBC, BMP, LFTs Protonix 40 mg twice daily added, dysphagia and would like and alternatives to PPI therapy can initiate famotidine twice daily upon discharge No plans for endoscopic evaluation at this time Patient can follow-up with her primary saw tailer after discharge Continue other medical management per primary team and consulting services Thank you for allowing us to participate in the care of the patient
[2020-06-30] MEDS: PANTOPRAZOLE 40 MG/10 ML VIAL IVP SCH (07:29)
[2020-06-30] MEDS: ONDANSETRON 4 MG/2 ML VIAL IVP PRN (07:29)
[2020-06-30] MEDS: METHYLPHENIDATE HCL 27 MG PO SCH (07:33)
[2020-06-30] MEDS: SODIUM CHLORIDE 0.9% 1,000 ML IV SCH (08:13)
[2020-06-30] MEDS: SODIUM FERRIC GLUCONAT-SUCROSE 125 MG in SODIUM CHLORIDE 0.9% 100 ML IVPB SCH (08:13)
[2020-06-30] MEDS ORDERED: APIXABAN 5 MG TAB PO SCH (10:30)
--- NOTE | 2020-06-30 12:04 | P.PN ---
Subjective Progress Note Date: 06/30/20 Principal diagnosis: Portal vein thrombosis Patient was seen and examined sitting up in bed. She appears in no acute distress. She reports no acute changes through the night. States abdominal pain continues to improve. She still has some mild epigastric discomfort. Nausea and vomiting improved. Patient still has mild nausea in the morning, however no vomiting and progressively gets better throughout the day. No difficulty with swallowing or eating. Objective - Vital Signs Vital signs: Vital Signs Temp 98.4 F 06/30/20 04:08 Pulse 82 06/30/20 04:08 Resp 18 06/30/20 04:08 BP 110/71 06/30/20 04:08 Pulse Ox 97 06/30/20 04:08 Intake & Output 06/29/20 06/30/20 06/30/20 18:59 06:59 18:59 Intake Total 1300 1930 167.213 Balance 1300 1930 167.213 Intake: Intake, IV Titration 1300 1450 167.213 Amount Heparin Sod,Pork in 0.45% 250 167.213 NaCl 25,000 unit In 0.45 % NaCl 1 250ml.bag @ 18 UNITS/KG/HR 15.676 mls/hr IV .[id number] [facility] Rx#: [id number] Sodium Chloride 0.9% 1, 1200 1200 000 ml @ 100 mls/hr IV . Q10H [facility] Rx#:[id number] Sodium Ferric Gluconat- 100 Sucrose 125 mg In Sodium Chloride 0.9% 100 ml @ 100 mls/hr IVPB DAILY [facility] Rx#:[id number] Oral 480 Other: # Voids 3 - Exam General appearance: The patient is alert, oriented, appears in no acute distress. HET: Head is normocephalic and atraumatic. Neck: Supple without lymphadenopathy. Trachea midline. Heart: S1 S2. Regular rate and rhythm. Lungs: No crackles or wheezes are heard. Abdomen: Soft, gastric tenderness, nondistended. Extremities: No rashes. No edema. Neurological: No focal deficits. Strength and sensation are grossly intact. - Labs CBC & Chem 7: 06/29/20 06:24 06/29/20 06:24 Labs: Abnormal Lab Results - Last 24 Hours (Table) 06/28/20 06/29/20 06/30/20 Range/Units 04:42 06:24 06:04 APTT 86.9 H (22.0-30.0) sec Lupus Anticoag aPTT 150 H (<43) Sec(s) Lupus Anticoag PTT Mix 85 H (<43) Sec(s) Dil Ayden Viper Venom 57 H (<44) Sec(s) LA dRVVT Confirm Positive A (Negative) dRVVT 50:50 46 H (<44) Sec(s) Lupus Hexagonal Phase Positive A (Negative) BUN <5.0 L (9.0-27.0) mg/dL Calcium 8.6 L (8.7-10.3) mg/dL Total Protein 5.8 L (6.2-8.2) g/dL Assessment and Plan (1) GERD (gastroesophageal reflux disease) Narrative/Plan: 30-year-old female presenting for abdominal pain and subsequently diagnosed with portal vein thrombosis of unknown etiology, currently undergoing hypercoagulable workup. Patient has long-standing history of reflux and reports prior EGDs with dilation, the last 4 years ago. Patient currently takes and antacid therapy on an as needed basis in outpatient setting. She reported taking omeprazole but Pepcid is listed in her home medications. Current Visit: Yes Status: Acute Code(s): K21.9 - GASTRO-ESOPHAGEAL REFLUX DISEASE WITHOUT ESOPHAGITIS SNOMED Code(s): 892645319 (2) Abdominal pain Current Visit: Yes Status: Acute Code(s): R10.9 - UNSPECIFIED ABDOMINAL PAIN SNOMED Code(s): 29526084 (3) Portal vein thrombosis Current Visit: Yes Status: Acute Code(s): I81 - PORTAL VEIN THROMBOSIS SNOMED Code(s): 45456253 Plan: Supportive care Okay for diet as tolerated Continue to monitor CBC, BMP, LFTs Protonix 40 mg twice daily added, dysphagia and would like and alternatives to PPI therapy can initiate famotidine twice daily upon discharge No plans for endoscopic evaluation at this time Patient can follow-up with her primary psychotherapist social worker after discharge the patient scheduled for EGD with Dr. Toledo July 11 Continue other medical management per primary team and consulting services Thank you for this consult, we will sign off at this time. There will be no estrogen neurology coverage through the weekend. Dr. Salvador Bear I agree with the dictator's note, documented as a scribe by Roshni Hutchins.
--- NOTE | 2020-06-30 20:52 | P.DS ---
Providers Date of admission: 06/26/20 15:35 Expected date of discharge: 06/30/20 Attending physician: Dany Reyes Consults: 06/26/20 15:32 Consult Physician Urgent Consulting Provider: Jeovany Fung Consult Reason/Comments: Portal vein thrombosis Do you want consulting provider notified?: Yes 06/28/20 08:29 Consult Physician Routine Consulting Provider: Devin Schrader Consult Reason/Comments: Acute protal vein thrombosis Do you want consulting provider notified?: Yes 06/28/20 14:21 Consult Physician Routine Consulting Provider: Efren Toledo Consult Reason/Comments: Chronic GERD? Pain, Nausea, now with SVT. GI evalaut ion for underlying whitney Do you want consulting provider notified?: Yes Primary care physician: [facility] Course: Discharge Diagnosis: Portal vein thrombosis Iron deficiency anemia Constipation Probable ischemic colitis GERD ADHD Hospital Course: Patient is a 30-year-old female past medical history of ADHD, GERD, and esophageal narrowing resulting in need for esophageal dilation presented to the ER initially with complaint of abdominal pain and nausea and vomiting. Initially in the ER she underwent an extensive evaluation with a CBC, CMP and lipase all with unremarkable findings. Gallbladder ultrasound was negative and she was subsequently discharged home. She reports an increase in symptoms over of the next day with continued nausea, vomiting, and pain. She underwent a CT abdomen and pelvis which showed portal vein thrombosis with extension into the superior mesenteric vein and splenoportal confluence resulting in inflammatory changes. She was started on heparin drip and admitted for further monitoring. She continued to have significant nausea and vomiting and abdominal pain. It has been slowly improving since getting of her hospital stay. She underwent a liver ultrasound which was negative for signs of cirrhosis. Her only provoking factor was found to be that she was on oral contraceptives. She does report a mother with a history of lupus and a paternal grandmother with a history of clotting problems. Hematology consulted and lower extremity venous doppler negative. GI consulted with hx of esophageal stricutre, plan is for outpatient EGD. Her nausea and pain continued to improve. She was determined stable for discharge home. She will be started on Eliquis. She was given explicit instructions to stay off of hormonal contraceptives and contact her ERP CONSULTANT for alternative options. She will not practice any contact sports including horseback riding. She will follow-up with Dr. Macrina in approximately 4 weeks for further hypercoagulability workup. Lupus anticoagulant and antiphospholipid antibody were negative. Patient seen and examined at bedside. Nausea improved, tolerating her full liquid diet. She will advance slowly over the next 1-2 weeks. Vital signs rev iewed and stable. Pain is improving General: non toxic, no distress, appears at stated age Derm: warm, dry Head: atraumatic, normocephalic, symmetric Eyes: EOMI, no lid lag, anicteric sclera Mouth: no lip lesion, mucus membranes moist Cardiovascular: S1S2 reg, no murmur, positive posterior tibial pulse bilateral, Lungs: CTA bilateral, no rhonchi, no rales , no accessory muscle use Abdominal: soft, tender to palpation epigastric, no guarding, no appreciable organomegaly Ext: no gross muscle atrophy, no edema, no contractures Neuro: CN II-XI grossly intact, no focal neuro deficits Psych: Alert, oriented, appropriate affect A total of 35 minutes of time were spent preparing this complex discharge summary . Patient Condition at Discharge: Stable Plan - Discharge Summary Discharge Rx Participant: No New Discharge Prescriptions: New Apixaban [Eliquis Starter Pack (for VTE)] 0 mg PO DIRECTED 30 Days #1 pack HYDROcodone/APAP 7.5-325MG [[place] 7.5-325] 1 each PO Q6H PRN #39 tab PRN Reason: Pain Pantoprazole [Protonix] 40 mg PO HS #30 tablet. Ferrous Sulfate [Slow Fe] 142 mg PO DAILY #30 tablet.er Ondansetron [Zofran ODT] 4 mg PO Q8HR #21 tab Continue Methylphenidate HCl [Concerta] 27 mg PO DAILY Famotidine [Pepcid] 20 mg PO DAILY PRN PRN Reason: Gi Upset Multivitamins, Thera [Multivitamin (formulary)] 1 tab PO DAILY Cetirizine HCl [Zyrtec] 10 mg PO DAILY Ascorbic Acid [Vitamin C] 500 mg PO DAILY Discontinued Norgestimate-Ethinyl Estradiol [Tri-Sprintec Tablet] 1 tab PO DAILY Discharge Medication List Cetirizine HCl [Zyrtec] 10 mg PO DAILY 06/25/20 [History] Famotidine [Pepcid] 20 mg PO DAILY PRN 06/25/20 [History] Methylphenidate HCl [Concerta] 27 mg PO DAILY 06/25/20 [History] Multivitamins, Thera [Multivitamin (formulary)] 1 tab PO DAILY 06/25/20 [History] Ascorbic Acid [Vitamin C] 500 mg PO DAILY 06/26/20 [History] Apixaban [Eliquis Starter Pack (for VTE)] 0 mg PO DIRECTED 30 Days #1 pack 06/28/20 [Rx] Ferrous Sulfate [Slow Fe] 142 mg PO DAILY #30 tablet.er 06/30/20 [Rx] HYDROcodone/APAP 7.5-325MG [[place] 7.5-325] 1 each PO Q6H PRN #39 tab 06/30/20 [Rx] Ondansetron [Zofran ODT] 4 mg PO Q8HR #21 tab 06/30/20 [Rx] Pantoprazole [Protonix] 40 mg PO HS #30 tablet. 06/30/20 [Rx] Follow up Appointment(s)/Referral(s): Devin Schrader MD [STAFF PHYSICIAN] - 08/08/20 10:45 am Leanne Almodovar MD [Primary Care Provider] - 1-2 days (doctor not taking patients insurance any more.if patient changes insurance, office can see her again.) Efren Toledo MD [STAFF PHYSICIAN] - 07/20/20 3:30 pm (Gastroenterolgy Needs to schedule outpatient EGD) Patient Instructions/Handouts: Iron Supplements (By mouth), Hydrocodone/Acetaminophen (By mouth), Ondansetron (By mouth), Pantoprazole (By mouth), Apixaban (By mouth), Deep Vein Thrombosis (DC), Blood Thinners (DC) Activity/Diet/Wound Care/Special Instructions: Activity: as tolerated Diet: regular Special Instructions: No horse back riding or contact sports No hormonal contraceptives [facility] pt has a 0$ co-pay for the med Discharge Disposition: HOME SELF-CARE
--- NOTE | 2020-07-04 20:23 | CDI ---
Date: 07/04/20 From: Jess James Phone: If you have a question about this query, please contact Susana Warren, [employer] at [phone] between 8am and 5pm. Admit Date: 06/26/2020 03:35:00 PM Patient Name: Snehal Martinez Visit Number: [id number] Discharge Date: 06/30/2020 02:05:00 PM ATTENTION: The Clinical Documentation Specialists (CDI) and [facility] Coding Staff appreciate your assistance in clarifying documentation. Please respond to the clarification below the line at the bottom and electronically sign. The CDI & [facility] Coding staff will review the response and follow-up if needed. Please note: Queries are made part of the Legal Health Record. If you have any questions, please contact the author of this message via ITS. Dr. Dany Reyes Your patient has a documented diagnosis of suspected ischemic colitis ( provider Crista Moreno 06/29 PN) - which may lack sufficient clinical evidence/support. History/Risk Factors: Esophageal narrowing, GERD Clinical Indicators: Abdominal pain, nausea and vomiting Treatment: Pain control, diet Based on the clinical evidence and your professional judgment, do you feel Ischemic Colitis is a valid diagnosis? Yes, [diagnosis] present/active during this admission as evidence by (additional clinical support): No, [] was ruled out. Other (please specify diagnosis) Unable to determine NO colitis MTDD
== END 2020-06-30 14:05 | disposition home or self-care (01) | DRG 442 ==
LOC: EC 11:45 → 6NMEDSUR 15:35 → 5NMEDONC 16:02
PROVIDERS: ADMIT Internal Medicine; ATTEND Internal Medicine
DX: I81 Portal vein thrombosis (principal); K55.9 Vascular disorder of intestine, unspecified; I47.1 Supraventricular tachycardia; F90.9 Attention-deficit hyperactivity disorder, unspecified type; R51.9 Headache, unspecified; K21.9 Gastro-esophageal reflux disease without esophagitis; D50.9 Iron deficiency anemia, unspecified; K59.00 Constipation, unspecified; R13.10 Dysphagia, unspecified; Z20.822 Contact with and (suspected) exposure to COVID-19; Z79.899 Other long term (current) drug therapy; Z87.19 Personal history of other diseases of the digestive system; Z83.2 Family history of diseases of the blood and blood-forming organs and certain disorders involving the immune mechanism; Z83.3 Family history of diabetes mellitus; Z82.49 Family history of ischemic heart disease and other diseases of the circulatory system; Z82.3 Family history of stroke; Z83.49 Family history of other endocrine, nutritional and metabolic diseases; Z79.3 Long term (current) use of hormonal contraceptives; Z82.69 Family history of other diseases of the musculoskeletal system and connective tissue
CPT/HCPCS: 36415; 74177; 76705; 80053; 81001; 81025; 82150; 82607; 82728; 83540; 83550; 83605; 83615; 83690; 83735; 83921; 85025; 85045; 85598; 85610; 85613; 85730; 85732; 86038; 86146; 86147; 86431; 87635; 93970; 93976; 96361; 96365; 96366; 96374; 96375; 96376; 99284; 99285

== ENCOUNTER 2020-07-11 10:00 | Day surgery (SDC) | payer OTHER ==
[2020-07-10 10:19] VITALS: BMI 31.4
[~2020-07-11 10:00] MED LIST: LACTATED RINGERS 1,000 ML IV SCH
[2020-07-11] MEDS ORDERED: LIDOCAINE 1% (10MG/ML) FOR IV START INTRADERMA ONE (10:24)
[2020-07-11] MEDS ORDERED: ONDANSETRON 4 MG/2 ML VIAL ONE (10:43)
[2020-07-11] MEDS ORDERED: ONDANSETRON 4 MG/2 ML VIAL IVP ONE (10:46)
[2020-07-11] MEDS ORDERED: LIDOCAINE 1% INJ 10MG/ML (20 ML MDV) ONE (11:16)
[2020-07-11] MEDS ORDERED: PROPOFOL 10 MG/ML 20 ML VIAL IV ONE (11:16)
[2020-07-11] MEDS ORDERED: MIDAZOLAM 2 MG/2 ML VIAL ONE (11:16)
--- NOTE | 2020-07-11 11:49 | P.PCN ---
Date of Procedure: 07/11/20 Description of Procedure: BRIEF HISTORY: Patient is a 30-year-old female presenting for outpatient EGD for evaluation of epigastric pain. Patient has long-standing history of reflux disease. Currently on Protonix nightly. She is taken omeprazole and Pepcid intermittently in the past. Recently found to have a portal vein thrombosis, she is being followed up by the hematology service. She reports a history of reflux since the age of 11, and reports a history of EGDs with dilations in the past. PROCEDURE PERFORMED: Esophagogastroduodenoscopy with biopsy. PREOPERATIVE DIAGNOSIS: Epigastric abdominal pain, GERD. ESTIMATED BLOOD LOSS: Minimal. IV sedation per anesthesia. PROCEDURE: After informed consent was obtained, the patient was brought into the endoscopy unit. IV sedation was administered by Anesthesia under continuous monitoring. Initially the Olympus GIF-190 video endoscope was inserted into the mouth. Esophagus intubated without any difficulty. It was gradually advanced into the stomach and duodenum and carefully examined. The bulb and the second part of the duodenum appeared normal, with biopsies taken. The scope at this time was withdrawn to the stomach, adequately insufflated with air, and upon careful examination, mucosa of the antrum, body, cardia and the fundus appeared normal, except for some mild punctate erythema in the antrum suggestive of mild gastritis biopsies of the antrum and body taken. The scope was then withdrawn into the esophagus. The GE junction was located at 39 cm from the incisors and biopsied. The esophagus appeared normal. There were no erosions or ulcerations seen and the patient tolerated the procedure well. IMPRESSION: 1. Mild Gastritis. 2. Biopsies of duodenum, antrum body and GE junction. RECOMMENDATIONS: The findings of this examination were discussed with the patient and her mother. Okay to resume diet. Okay to resume medications. Await pathology from biopsies. Follow up with primary care physician and hematology service as previously scheduled.
[2020-07-11] MEDS ORDERED: PROMETHAZINE INJ 25 MG/ML 1 ML VIAL IVPB ONE (11:55)
[2020-07-11 12:07] VITALS: BP 101/62; PULSE 87; RESP 16
== END 2020-07-11 12:42 | disposition home or self-care (01) ==
LOC: ORWHC2ENDO 10:00
PROVIDERS: ATTEND Internal Medicine
DX: K29.50 Unspecified chronic gastritis without bleeding (principal); K20.0 Eosinophilic esophagitis; K21.9 Gastro-esophageal reflux disease without esophagitis; I81 Portal vein thrombosis; F90.9 Attention-deficit hyperactivity disorder, unspecified type; Z90.89 Acquired absence of other organs; Z79.01 Long term (current) use of anticoagulants; Z79.899 Other long term (current) drug therapy
CPT/HCPCS: 81025; 88305; 43239; J2250; J2550; J2405; J2001; J2704